=== PATIENT | male | born 1950 | race African-American/Black ===

== ENCOUNTER 2023-03-25 09:10 | Inpatient (IN) | payer OTHER, SELFPAY ==
--- NOTE | 2023-03-25 | ECG_ITS ---
Test Reason : weakness Blood Pressure : / mmHG Vent. Rate : 083 BPM Atrial Rate : 083 BPM P-R Int : 206 ms QRS Dur : 084 ms QT Int : 364 ms P-R-T Axes : 076 -25 058 degrees QTc Int : 427 ms Normal sinus rhythm Minimal voltage criteria for LVH, may be normal variant ( Roger product ) Septal infarct , age undetermined Abnormal ECG No previous ECGs available Referred By: Generic ED Physician Electronically Signed By:ANNELISE MALHOTRA MD
--- NOTE | ~2023-03-25 | XR_ITS ---
EXAMINATION: XR CHEST CLINICAL INFORMATION: Chest pain. COMPARISON: None available. TECHNIQUE: 2 views of the chest were obtained. FINDINGS: The lungs are well expanded. There is contour abnormality in the right hilar region with lobulated masslike density measuring 5 cm. No pleural effusion. Cardiac silhouette is within normal limits. XR/XR chest 2V IMPRESSION: Masslike right hilar density measuring at least 5 cm. Contrast-enhanced chest CT is recommended for further characterization.
--- NOTE | ~2023-03-25 | CT_ITS ---
EXAMINATION: CT CHEST WITH CONTRAST CLINICAL INFORMATION: Abnormal x-ray. Concern for lung cancer. COMPARISON: Radiograph from today TECHNIQUE: Multidetector volumetric CT imaging of the chest was obtained after the administration of 65 mL of Omnipaque 350 intravenous contrast without immediate adverse reactions. Axial MIP volume rendering provided. Sagittal and coronal reformatted images were obtained. This CT examination was performed using dose optimization techniques as appropriate, variously including the following: *Automated exposure control *Adjustment of mA and/or kV according to patient size (this includes techniques or standardized protocols for targeted exams where dose is matched to indication/reason for exam; i.e. extremities or head) *Use of iterative reconstruction technique DLP: 221 mGy-cm FINDINGS: SIDE PULLER: Fullness in the region of the right hilum again noted as seen on radiograph. LUNGS: The central airways are patent. There is moderate to severe centrilobular and paraseptal emphysema. Paraseptal emphysema is predominant. There is a central right lung mass impossible from the hilar structures. This measures approximately 7.2 x 5.2 cm on series 5 image 249. There is encasement of the right sided bronchi. This crosses the fissure lines. There is a superior extension in the right upper lobe with this component measuring 3.9 x 3.8 cm on series 5 image 210 . There is also a nodular extension inferiorly in the right lower lobe measuring 2.7 x 1.7 cm on series 5 image 347. There are no left lung nodules seen. No pneumothorax or pleural effusion. MEDIASTINUM: Normal heart size. No pericardial effusion. Confluent mass of the right hilum. Associated mediastinal lymphadenopathy. For instance there is a subcarinal node measuring 1.8 cm . Precarinal node measures 1.3 cm. Pretracheal node more superiorly measures 1.4 cm. AXILLA: No lymphadenopathy. UPPER ABDOMEN: Normal adrenal glands. Mild heterogeneity of the spleen is nonspecific and may be associated with contrast bolus timing. OSSEOUS STRUCTURES: Degenerative changes throughout the spine. A few lucent areas are seen within the vertebral bodies, nonspecific. For instance in the T6 vertebral body there is a 1.2 cm lucency. Additional lucent area at the superior endplate of L2. In the absence of other evidence of metastatic disease, these findings are likely incidental. CT/CT chest w IV con IMPRESSION: 1. Central right lung mass impossible to separate from the hilar structures. This is highly suspicious for malignancy. There is associated mediastinal lymphadenopathy. 2. Moderate to severe emphysema. Fleischner guidelines were followed.
[2023-03-25 10:00] VITALS: BP 101/64; PULSE 90; RESP 18; TEMP 37; O2SAT 98; BMI 19.1
--- NOTE | 2023-03-25 10:36 | ED_ITS ---
HPI - Weakness General Chief complaint: Weakness Stated complaint: weak not eating couple months Time Seen by Provider: 03/25/23 10:35 Source: patient Mode of arrival: ambulatory Limitations: no limitations History of Present Illness HPI Narrative: 72-year-old male with no known past medical history, former smoker presents to the emergency department for progressing generalized weakness and fatigue. He reports that he has been unable to eat or drink for about 6 months due to feeling nauseous most of the time. Due to this, patient has lost 60 lbs. He reports that he has been sleep deprived for months. He also endorses constant, non-radiating chest pain, which he rates as 6/10. He has a 50 year history of sm oking half a pack of cigarette a day. Last cigarette use was 6 months ago. He denies SOB, cough, GI bleeding, muscle pain, or abdominal pain. He reports no other acute concerns at this time. MD Complaint: generalized weakness Onset (ago): month(s) Duration: progressively worsening Location: generalized Migration: none Severity: severe Quality: aching Relieving factors: rest Exacerbating factors: exertion Associated symptoms: chest pain, loss of appetite, nausea/vomiting and other (weight loss) Related Data Home Medications Medication Instructions Recorded Confirmed acetaminophen 325 mg tablet 650 mg PO Q6H PRN Pain 03/25/23 03/25/23 (Tylenol) Allergies Allergy/AdvReac Type Severity Reaction Status Date / Time No Known Allergies Allergy Verified 03/25/23 10:00 Review of Systems Review of Systems: Yes all other systems are reviewed and are negative [facility] Social History Social History Smoked in Last 30 Days: No Use of substances other than those prescribed or required for medical reasons: Yes Substance Use Type: Marijuana Advance Directives: No Advance Directives Information Provided: Yes Physical Exam Vital Signs: Vital Signs: Last Vital Signs Temp 97.7 F 03/25/23 14:36 Pulse 68 03/25/23 14:36 Resp 15 03/25/23 14:36 BP 99/62 03/25/23 14:36 Pulse Ox 97 03/25/23 14:36 O2 Del Method Room Air 03/25/23 14:36 BMI result Body Mass Index 19.1 Appearance: Alert. Oriented X3. Cachectic male Head: normocephalic, atraumatic. Eyes: Pupils equal, round and reactive to light. ENT: Pharynx normal. No tonsillar swelling or exudate. Neck: Normal inspection. Neck supple. No appreciated supraclavicular adenopathy CVS: Normal heart rate and rhythm. Pulses normal. Respiratory: No respiratory distress. Breath sounds normal. Abdomen: Soft and nontender. +BS x4 Skin: Skin warm and dry. Normal skin color. Normal skin turgor. No rashes. Extremities: No lower extremity edema. No joint swelling. Neuro/psych: Oriented X 3. No motor deficit. No sensory deficit. CN II-XII intact. Normal speech and cognition. Course Consultations Consultation #1: Dr. Ruvalcaba and Medications Administered Discontinued Medications Generic Name Dose Route Start Last Admin Trade Name Freq PRN Reason Stop Dose Admin Sodium Chloride 1,000 mls @ 999 mls/hr 03/25/23 11:15 03/25/23 15:21 Ns IVCONT 03/25/23 12:15 Infused .Q1H1M NOAH Infusion Sodium Chloride 1,000 mls @ 999 mls/hr 03/25/23 14:15 03/25/23 15:25 Ns IV 03/25/23 15:15 999 mls/hr .Q1H1M NOAH Administration Iohexol 100 ml 03/25/23 12:44 03/25/23 12:44 Iohexol 350 Mg/Ml 100 Ml Infus..Btl IV 03/25/23 12:45 65 ml ONCE ONE Administration Iohexol 100 ml 03/25/23 13:01 03/25/23 13:16 Iohexol 350 Mg/Ml 100 Ml Infus..Btl IV 03/25/23 13:02 Not Given ONCE ONE Ondansetron HCl 4 mg 03/25/23 14:52 03/25/23 15:25 Ondansetron Hcl 4 Mg/2 Ml Vial IVPUSH 03/25/23 14:53 4 mg ONCE ONE Administration Medical Decision Making Medical Decision Making [facility] Narrative: 72-year-old former smoker presents to the ER for evaluation of failure to thrive with decreased p.o. intake, significant weight loss, nausea, generalized weakness for the last several months. His lab workup today showed a calcium of 12.7. He was found to have an albumin of 2.8, therefore his corrected calcium was 13.7. Given his physical exam and clinical decline there is concern for underlying malignancy. His chest x-ray showed a large right-sided perihilar mass with CT scan was done to better differentiate. CT scan confirmed a large 7 x 5 cm mass in the right perihilar area along with lucencies in the spine, most likely metastatic disease. Results were discussed with the patient and his family at the bedside. Given his symptomatic hypercalcemia, IV fluids were started and admission was planned. Oncologist Dr. Porter and Dr. Ruvalcaba were made aware. Patient was admitted to the hospital for further management and monitoring. Differential Diagnosis Differential Diagnoses: The differential diagnosis associated with the presentation includes Failure to thrive, new cancer Hypercalcemia likely due to metastatic cancer, possibly hyperparathyroidism, dehydration Admission/Observation Consideration of admission/observation: Escalation of care including admission/observation considered Symptomatic hypercalcemia requiring IV fluids, admission and monitoring. Consult Healthcare Provider Management of the patient was discussed with: Hospitalist and Warrant Clerk Lab Data MDM Lab Attestation statement: I reviewed the patient's lab results. hypercalcemia 03/25/23 10:32 03/25/23 10:32 Labs: Lab Results 03/25/23 03/25/23 03/25/23 Range/Units 10:32 10:32 10:32 WBC 9.1 (4.8-10.8) X10*3/uL RBC 4.21 L (4.60-5.80) X10*6/uL Hgb 12.2 L (14.0-18.0) g/dl Hct 38.9 L (42.0-52.0) % MCV 92.4 (80.0-98.0) fL MCH 29.0 (27.0-33.0) pg MCHC 31.4 (31.0-36.0) g/dl RDW 14.0 (11.0-16.0) % Plt Count 238 (160-400) X10*3/uL MPV 9.3 L (9.4-12.4) fL Immature Gran % (Auto) 0.6 H (0.0-0.4) % Neut % (Auto) 77.2 H (45-73) % Lymph % (Auto) 11.0 L (20-40) % [place] % (Auto) 10.8 (2-11) % Eos % (Auto) 0.1 (0-4) % Baso % (Auto) 0.3 (0-2) % Lymph # (Auto) 1.0 L (1.2-4.9) X10*3/uL [place] # (Auto) 1.0 (0.1-1.2) X10*3/uL Eos # (Auto) 0.0 (0.0-0.4) X10*3/uL Baso # (Auto) 0.0 (0.0-0.2) X10*3/uL Abs Immat Gran (auto) 0.05 H (0.00-0.03) X10*3/uL Absolute Neuts (auto) 7.0 (2.0-8.3) x10*3/uL Absolute Nucleated RBC 0.000 (0.0-0.012) X10*3/uL Nucleated RBC % (auto) 0.0 (0.0-0.2) /100WBC Sodium 133 L (135-145) mmol/L Potassium 4.2 (3.3-5.1) mmol/L Chloride 99 (96-108) mmol/L Carbon Dioxide 24 (22-29) mmol/L Anion Gap 14 (12-20) BUN 16 (9-16) mg/dL Creatinine 0.74 (0.5-1.4) mg/dL Estim Creat Clear Calc 80.2 Estimated GFR > 60 Random Glucose 90 (60-115) mg/dL Calcium 12.7 H* (8.4-10.2) mg/dL Phosphorus 2.7 (2.7-4.5) mg/dL Total Bilirubin 0.7 (0.0-1.0) mg/dL Direct Bilirubin 0.3 (0.0-0.5) mg/dL AST 38 H (5-37) U/L ALT 19 (0-40) U/L Alkaline Phosphatase 61 (39-117) U/L Troponin I High Sens 4.7 (<3.5-35.0) ng/L Total Protein 10.1 H (6.5-8.0) g/dL Albumin 2.8 L (3.5-5.0) g/dL Independent Interpretation I performed an independent interpretation of an: EKG, Plain X-Ray and CT Scan Interpretation: cxr with large right sided perihilar mass ekg with nrs, hr 83 bpm, normal QT and QTc CT chest with large perihilar lung mass on the right, emphysema changes w/ blebs Radiology Impression Discussion of test interpretation with radiology: I have reviewed the radiologist's reading. Radiologist Impression: EXAMINATION: CT CHEST WITH CONTRAST CLINICAL INFORMATION: Abnormal x-ray. Concern for lung cancer.? COMPARISON: Radiograph from today TECHNIQUE: Multidetector volumetric CT imaging of the chest was obtained after the administration of 65 mL of Omnipaque 350 intravenous contrast without immediate adverse reactions. Axial MIP volume rendering provided. Sagittal and coronal reformatted images were obtained. This CT examination was performed using dose optimization techniques as appropriate, variously including the following: *Automated exposure control *Adjustment of mA and/or kV according to patient size (this includes techniques or standardized protocols for targeted exams where dose is matched to indication/reason for exam; i.e. extremities or head) *Use of iterative reconstruction technique DLP: 221 mGy-cm FINDINGS: ROASTERMAN: Fullness in the region of the right hilum again noted as seen on radiograph. LUNGS: The central airways are patent. There is moderate to severe centrilobular and paraseptal emphysema. Paraseptal emphysema is predominant. There is a central right lung mass impossible from the hilar structures. This measures approximately 7.2 x 5.2 cm on series 5 image 249. There is encasement of the right sided bronchi. This crosses the fissure lines. There is a superior extension in the right upper lobe with this component measuring 3.9 x 3.8 cm on series 5 image 210 . There is also a nodular extension inferiorly in the right lower lobe measuring 2.7 x 1.7 cm on series 5 image 347. There are no left lung nodules seen. No pneumothorax or pleural effusion.? MEDIASTINUM: Normal heart size. No pericardial effusion. Confluent mass of the right hilum. Associated mediastinal lymphadenopathy. For instance there is a subcarinal node measuring 1.8 cm . Precarinal node measures 1.3 cm. Pretracheal node more superiorly measures 1.4 cm.? AXILLA: No lymphadenopathy.? UPPER ABDOMEN: Normal adrenal glands. Mild heterogeneity of the spleen is nonspecific and may be associated with contrast bolus timing.? OSSEOUS STRUCTURES: Degenerative changes throughout the spine. A few lucent areas are seen within the vertebral bodies, nonspecific. For instance in the T6 vertebral body there is a 1.2 cm lucency. Additional lucent area at the superior endplate of L2. In the absence of other evidence of metastatic disease, these findings are likely incidental.? CT/CT chest w IV con IMPRESSION: 1.? Central right lung mass impossible to separate from the hilar structures. This is highly suspicious for malignancy. There is associated mediastinal lymphadenopathy. 2.? Moderate to severe emphysema. ? Independent Historian Clinical information obtained from an independent historian. History obtained from or confirmed by: Other (sisters at the bedside) Prescription Management calcitonin, bisphosphanates Chronic Conditions Patient?s care impacted by: Other (former) Critical Care Time Critical Care Time Critical Care Time: Yes Total Critical Care Time: 38 Attestation: I have personally provided critical care time exclusive of time spent on separately billable procedures. Time includes review of lab data, radiology results, discussion with consultants, and monitoring for potential decompensation. Intervention performed as documented. Discharge Plan Discharge Clinical Impression: Mass of right lung, Hypercalcemia, Adult failure to thrive Patient Disposition: Admitted As Inpatient
[2023-03-25 10:39] LABS: Basophils Percent Auto 0.3 % (0-2); Eosinophils Percent Auto 0.1 % (0-4); Hematocrit 38.9 % (42.0-52.0); Hemoglobin 12.2 g/dl (14.0-18.0); Imm Gran Abs Auto 0.05 X10*3/uL (0.00-0.03); Imm Gran Pct Auto 0.6 % (0.0-0.4); MANUAL DIFF FLAG NO; Mean Corpuscular HGB Conc 31.4 g/dl (31.0-36.0); Mean Corpuscular Volume 92.4 fL (80.0-98.0); Mean Platelet Volume 9.3 fL (9.4-12.4); Monocytes Percent Auto 10.8 % (2-11); Neutrophils Percent Auto 77.2 % (45-73); Platelet Count 238 X10*3/uL (160-400); Red Blood Count 4.21 X10*6/uL (4.60-5.80); White Blood Count 9.1 X10*3/uL (4.8-10.8)
[2023-03-25 11:04] LABS: Anion Gap 14 (12-20); Blood Urea Nitrogen 16 mg/dL (9-16); Calcium 12.7 mg/dL (8.4-10.2); Carbon Dioxide 24 mmol/L (22-29); Chloride 99 mmol/L (96-108); Creatinine Clr Calc Pharmacy 80.2; Estimated Glomerular Filt Rate > 60; Glucose Random 90 mg/dL (60-115); Potassium 4.2 mmol/L (3.3-5.1); Sodium 133 mmol/L (135-145)
[2023-03-25 11:09] LABS: Troponin-I High Sensitivity 4.7 ng/L (<3.5-35.0)
[2023-03-25 11:49] LABS: Phosphorus 2.7 mg/dL (2.7-4.5)
[2023-03-25] MEDS: 0.9 % Sodium Chloride 1,000 ML 999 ML IVCONT (12:12)
[2023-03-25 12:14] VITALS: BP 98/67; PULSE 72; RESP 18; TEMP 36.5; O2SAT 97
[2023-03-25] MEDS: iohexoL 350 MG/ML 100 ML INFUS..BTL IV (12:44)
[2023-03-25 14:36] VITALS: BP 99/62; PULSE 68; RESP 15; TEMP 36.5; O2SAT 97
--- NOTE | 2023-03-25 15:00 | PHA.MEDREC ---
Pharmacy Consult ? Medication Reconciliation Pharmacy has completed the medication reconciliation.
[2023-03-25 15:14] LABS: Alanine Aminotransferase 19 U/L (0-40); Albumin Level 2.8 g/dL (3.5-5.0); Alkaline Phosphatase 61 U/L (39-117); Aspartate Amino Transferase 38 U/L (5-37); Bilirubin Direct 0.3 mg/dL (0.0-0.5); Bilirubin Total 0.7 mg/dL (0.0-1.0); Total Protein 10.1 g/dL (6.5-8.0)
[2023-03-25] MEDS: ondansetron HCL 4 MG/2 ML VIAL IVPUSH (15:25)
[2023-03-25] MEDS: 0.9 % Sodium Chloride 1,000 ML 999 ML IV (15:25)
--- NOTE | 2023-03-25 16:28 | P.HPHOSP_ITS ---
History of Present Illness Date of Service: 03/25/23 Attending physician on admission: Kojo Corrigan Chief Complaint: lung mass /hypercalcemia 72-year-old male no known past medical history, former smoker?(says smoker for 50yrs) came to the emergency room for 3-6 month history of progressive generalized weakness and fatigue, weight loss. He said that from last 6 months he is getting progressively weak, appetite decreasing, is losing weight-from last 2 week it was difficult for him to move around so he went to the hospital([facility] in [place])-where he was told that he probably will need biopsy(but he said he could not get biopsy due to insurance issues): Subsequently went home and was getting more fatigue and week so decided to come to the hospital. In addition patient says he has cough almost 3 month duration as well as chest tightness whenever he coughs. Also has nausea almost 3 months duration Denies any hemoptysis, or shortness of breath or fever or chills or vomiting or any muscle twitching or palpitations or headaches or lightheadedness or blurred vision. On exam denies chest pain. Lab imaging reviewed: H&H 12.2 Sodium 133, adjusted calcium for albumin is around 13.7 Total protein is 10.1, albumin is 2.8 Troponin x1 negative, EKG: nsr ,no significant st changes. PTH pending Chest CT shows:: 1.? Central right lung mass impossible to separate from the hilar structures. This is highly suspicious for malignancy. There is associated mediastinal lymphadenopathy. 2.? Moderate to severe emphysema. Review of Systems Review of Systems: As above. [facility] Pertinent family history: Denies any family history of any cancer Social History (Updated 03/25/23 @ 16:36 by Kojo Corrigan MD) Alcohol intake: never Patient Tobacco Use Status: Former Tobacco user Substance Use Type: Marijuana Meds Allergies Allergy/AdvReac Type Severity Reaction Status Date / Time No Known Allergies Allergy Verified 03/25/23 10:00 Active Medications: Current Medications Pamidronate Disodium 60 mg/ (Sodium Chloride) 260 mls @ 130 mls/hr IV ONCE ONE Stop: 03/25/23 18:59 Sodium Chloride (Ns) 1,000 mls @ 125 mls/hr IVCONT .Q8H [facility] Pharmacy Consult (Consult Rx Perform Med Rec) 1 each MISCELLANE ONCE PRN PRN Reason: Consult order Sodium Chloride (0.9 % Sodium Chloride Flush 3 Ml Syringe) 3 ml IVFLUSH QSHIFT [facility] Home Medications Medication Instructions Recorded Confirmed Last Taken Type acetaminophen 325 mg tablet 650 mg PO Q6H PRN Pain 03/25/23 03/25/23 2 Days Ago History (Tylenol) ~03/23/23 Physical Exam Vital Signs and Narrative: Vital Signs: Last Vital Signs Temp 97.7 F 03/25/23 14:36 Pulse 68 03/25/23 14:36 Resp 15 03/25/23 14:36 BP 99/62 03/25/23 14:36 Pulse Ox 97 03/25/23 14:36 O2 Del Method Room Air 03/25/23 14:36 BMI result Body Mass Index 19.1 Appearance: Alert.? Oriented X3.? not in distress.thin build, ch sick looking,?seems sad. Eyes: Pupils equal, round and reactive to light.? Sclera nonicteric.? ENT: Pharynx normal.? Moist mucous membranes. cvs: rrr, [id number] . res: air entry fair ,few sacttered wheezing abd: no rebound or guarding ,nt, bs present. ext pulses present , no cyanosis . neuro: axo3 , nonfocal. Results Labs 03/25/23 10:32 03/25/23 10:32 Labs: Laboratory Results - last 24 hr 03/25/23 03/25/23 03/25/23 10:32 10:32 10:32 MCV 92.4 MCH 29.0 MCHC 31.4 RDW 14.0 Plt Count 238 MPV 9.3 L Immature Gran % (Auto) 0.6 H Neut % (Auto) 77.2 H Lymph % (Auto) 11.0 L [place] % (Auto) 10.8 Eos % (Auto) 0.1 Baso % (Auto) 0.3 Lymph # (Auto) 1.0 L [place] # (Auto) 1.0 Eos # (Auto) 0.0 Baso # (Auto) 0.0 Abs Immat Gran (auto) 0.05 H Absolute Neuts (auto) 7.0 Absolute Nucleated RBC 0.000 Nucleated RBC % (auto) 0.0 Anion Gap 14 Estim Creat Clear Calc 80.2 Estimated GFR > 60 Random Glucose 90 Calcium 12.7 H* Phosphorus 2.7 Total Bilirubin 0.7 Direct Bilirubin 0.3 AST 38 H ALT 19 Alkaline Phosphatase 61 Troponin I High Sens 4.7 Total Protein 10.1 H Albumin 2.8 L ECG Attestation: I personally reviewed and interpreted this ECG as follows: (nsr ,no significant st changes.) Imaging Radiologist's Impressions: Impressions Chest X-Ray 03/25/23 11:05 IMPRESSION: Masslike right hilar density measuring at least 5 cm. Contrast-enhanced chest CT is recommended for further characterization. Chest CT 03/25/23 13:00 IMPRESSION: 1. Central right lung mass impossible to separate from the hilar structures. This is highly suspicious for malignancy. There is associated mediastinal lymphadenopathy. 2. Moderate to severe emphysema. Fleischner guidelines were followed. Assessment and Plan (1) Mass of right lung: Status: Acute (2) Hypercalcemia: Status: Acute (3) Malnutrition: Status: Acute Plan 72-year-old male no known past medical history, former smoker?(says smoker for 50yrs) came to the emergency room for 3-6 month history of progressive generalized weakness and fatigue, weight loss: Found to have possible lung mass and hypercalcemia. 1. Hypercalcemia (? Possible malignancy) Adjusted calcium is around 13.7 Patient received 2 L of IV fluid in the ED, also Lasix PTH pending Repeat BMP pending, also added pamidronate Monitor BMP closely q.6 hours Added hematology evaluation. 2. Hyponatremia: Multifactorial poor oral intake, malignancy Continue IV fluid Monitor BMP Nephro evaluation since multiple electrolytic abnormalities including hyponatremia and hypercalcemia. 3. Malnutrition:? Multifactorial malignancy, poor oral intake. Weight loss around 60 lb in last 6 months. Added nutrition evaluation, Ensure 4. Possible lung malignancy: Seems like have central lesion, will consult Pulmonary for needed biopsy. DVT prophylaxis: SubQ heparin Patient will benefit from inpatient level of care since patient has multiple electrolytic abnormalities including severe hypercalcemia for which patient will need workup IV fluid and IV pamidronate, and possible workup for hypercalcemia and hyponatremia, possible lung malignancy -may need bronchoscopy and biopsy. Time Spent With Patient Time: Total time managing care of this patient today ____ minutes. Quality Stroke Does the patient have a stroke diagnosis?: No VTE Prior VTE?: No VTE Risk Level:: Medical - moderate - high VTE Device Contraindication: N/A - Device Ordered VTE Drug Contraindication: N/A - Med Ordered
[2023-03-25] MEDS: Furosemide 20 MG TABLET PO (17:09)
[2023-03-25] MEDS: Heparin Sodium,Porcine 5,000 UNIT/ML VIAL 5000 UNIT SUBCUT (17:10)
[2023-03-25 17:13] VITALS: BP 96/59; PULSE 69; RESP 14; O2SAT 97
[2023-03-25 17:14] LABS: Anion Gap 13 (12-20); Blood Urea Nitrogen 16 mg/dL (9-16); Calcium 11.3 mg/dL (8.4-10.2); Carbon Dioxide 20 mmol/L (22-29); Chloride 105 mmol/L (96-108); Creatinine Clr Calc Pharmacy 91.3; Estimated Glomerular Filt Rate > 60; Glucose Random 86 mg/dL (60-115); Potassium 4.1 mmol/L (3.3-5.1); Sodium 134 mmol/L (135-145)
[2023-03-25] MEDS: 0.9 % Sodium Chloride 1,000 ML 125 ML IVCONT (17:18)
[2023-03-25] MEDS: Omeprazole 20 MG CAPSULE.DR PO (17:32)
[2023-03-25 17:39] LABS: Lactate Dehydrogenase 217 U/L (118-273)
[2023-03-25 18:09] VITALS: BP 105/61; PULSE 66; RESP 18; TEMP 37.1; O2SAT 96
[2023-03-25] MEDS: Pamidronate Disodium 60 MG in 0.9 % Sodium Chloride 250 ML 130 MG IV (18:37)
[2023-03-25 19:25] VITALS: BP 119/75; PULSE 70; RESP 16; TEMP 36; O2SAT 96
[2023-03-26] VITALS (8 sets, daily range): BP systolic 100–110; BP diastolic 57–65; PULSE 62–86; RESP 16–20; TEMP 36.6–38.7; O2SAT 94–99
[2023-03-26 00:23] LABS: Anion Gap 12 (12-20); Blood Urea Nitrogen 15 mg/dL (9-16); Calcium 11.3 mg/dL (8.4-10.2); Carbon Dioxide 23 mmol/L (22-29); Chloride 104 mmol/L (96-108); Estimated Glomerular Filt Rate > 60; Glucose Random 83 mg/dL (60-115); Potassium 3.6 mmol/L (3.3-5.1); Sodium 135 mmol/L (135-145)
[2023-03-26] MEDS: 0.9 % Sodium Chloride 1,000 ML 125 ML IVCONT ×3 (02:46→17:22)
[2023-03-26] MEDS: Omeprazole 20 MG CAPSULE.DR PO (05:23)
[2023-03-26] MEDS: Heparin Sodium,Porcine 5,000 UNIT/ML VIAL 5000 UNIT SUBCUT ×2 (05:23→17:32)
[2023-03-26 06:52] LABS: Anion Gap 10 (12-20); Blood Urea Nitrogen 13 mg/dL (9-16); Carbon Dioxide 24 mmol/L (22-29); Chloride 105 mmol/L (96-108); Creatinine Clr Calc Pharmacy 91.3; Estimated Glomerular Filt Rate > 60; Glucose Random 76 mg/dL (60-115); Potassium 3.7 mmol/L (3.3-5.1); Sodium 135 mmol/L (135-145)
--- NOTE | 2023-03-26 07:52 | P.CNHO_ITS ---
Subjective - Subjective Chief complaint: Weakness and weight loss Patient: new to practice Consult date: 03/26/23 Requesting Physician: Dr. Corrigan Primary Care Provider: Sreekanth Reyes PA-C HPI - Consult Narrative Reason for consult: Probable lung cancer Narrative: Gualberto Banks is a 72 year old male, chronic smoker who presented to emergency department for progressive weakness and weight loss. He says for the last 6 months he has had loss of appetite, weakness and weight loss, reports 50 lb weight loss. He has a chronic cough but denies hemoptysis or worsening shortness of breath. He has not seen his PCP in over a year. He says he has had progressive weakness to the point that he is not able to walk. He reports no nausea or emesis. No abdominal pain or diarrhea. He has not been started on any new medications. He is not a diabetic. No change in vision or difficulty swallowing. No urinary symptoms. Workup in the emergency department revealed hypoalbuminemia and hypercalcemia. CT chest showed right lung mass suspicious for malignancy and associated mediastinal lymphadenopathy. Patient denies any chronic medical problems such as coronary artery disease, hypertension, CVA or COPD although he does have COPD on imaging. Review of Systems - Constitutional Reports as per HPI, Denies anorexia, Denies lack of energy, Denies malaise - Cardiovascular Reports no additional cardiovascular complaints - Respiratory Reports no additional respiratory complaints - Gastrointestinal Reports no additional gastrointestinal complaints Oncology Screenings - ECOG Performance Status ECOG Performance Status: [facility] Social History: Social History (Last Updated 03/25/23 @ 16:36 by Kojo Corrigan MD) Living Situation History: Household Members: Other Household Members Other:: Lives with brother Housing: House Do you presently have visiting nurse or other home services: No Tobacco History: Patient Tobacco Use Status: Former Tobacco user Tobacco use type: Cigarette Cigarette Packs Per Day: 0.5 Cigarettes Per Day: 10 Years Smoked: 50 Smoke Quit Date: 6 months ago Substance Use History: Substance Use Type: Marijuana Home Medications and Allergies Current Medications: Current Medications Albuterol/Ipratropium (Albuterol/Iprat 2.5/0.5mg 3 Ml Ampul.Neb) 3 ml INHALE RQ4H WHILE AWAKE [facility] Last Admin: 03/25/23 19:59 Dose: Not Given Heparin Sodium (Porcine) (Heparin Sodium,Porcine 5,000 Unit/Ml Vial) 5,000 unit SUBCUT Q12H COUNTS INCLUDE 234 BEDS AT THE [facility] Last Admin: 03/26/23 05:23 Dose: 5,000 unit Sodium Chloride (Ns) 1,000 mls @ 125 mls/hr IVCONT .Q8H COUNTS INCLUDE 234 BEDS AT THE [facility] Last Admin: 03/26/23 02:46 Dose: 125 mls/hr Omeprazole (Omeprazole 20 Mg Capsule.Dr) 20 mg PO DAILY@0630 COUNTS INCLUDE 234 BEDS AT THE [facility] Last Admin: 03/26/23 05:23 Dose: 20 mg Ondansetron HCl (Ondansetron Hcl 4 Mg/2 Ml Vial) 4 mg IVPUSH Q4H PRN PRN Reason: Nausea Pharmacy Consult (Consult Rx Perform Med Rec) 1 each MISCELLANE ONCE PRN PRN Reason: Consult order Sodium Chloride (0.9 % Sodium Chloride Flush 3 Ml Syringe) 3 ml IVFLUSH QSHIFT COUNTS INCLUDE 234 BEDS AT THE [facility] Last Admin: 03/26/23 00:14 Dose: Not Given Home Medications Medication Instructions Recorded Confirmed Type acetaminophen 325 mg tablet 650 mg PO Q6H PRN Pain 03/25/23 03/25/23 History (Tylenol) Allergies Allergy/AdvReac Type Severity Reaction Status Date / Time No Known Allergies Allergy Verified 03/25/23 10:00 Physical Exam Vital signs: Vital Signs Temp 98.2 F 03/26/23 07:14 Pulse 62 03/26/23 07:14 Resp 18 03/26/23 07:14 BP 100/60 03/26/23 07:14 Pulse Ox 99 03/26/23 07:14 O2 Del Method Room Air 03/26/23 07:14 Intake & Output 03/25/23 03/26/23 03/26/23 18:59 06:59 18:59 Intake Total 1999 / 3360 1360 / 3360 Output Total 900 / 900 Balance 1999 460 / 2460 Urine Output (Average ml/kg/hr) 1.18 Intake: Intake, Oral Amount 100 / 100 Intake, IV Amount 1999 / 3260 1260 / 3260 0.9 % Sodium Chloride 1,000 ml 1000 / 1000 @ 999 mls/hr IV .Q1H1M COUNTS INCLUDE 234 BEDS AT THE [facility] Rx#: [id number] Pamidronate Disodium 60 mg In 0 260 / 260 .9 % Sodium Chloride 250 ml @ 130 mls/hr IV ONCE ONE Rx#: [id number] 0.9 % Sodium Chloride 1,000 ml 1000 / 2000 1000 / 2000 @ 125 mls/hr IVCONT .Q8H COUNTS INCLUDE 234 BEDS AT THE [facility] Rx #:[id number] Output: Output, Urine Amount 900 / 900 Other: Urine Urinal Urine Color Yellow Last Bowel Movement 03/22/23 Weight 63.8 kg Weight 63.8 kg - Constitutional Present: no acute distress, thin, cooperative - Routine HEENT Exam Head: Present: normal inspection Eye: Present: EOMI, normal appearance - Routine Neck Exam Present: supple. Absent: lymphadenopathy - Routine Respiratory Exam Absent: accessory muscle use, rhonchi, stridor, wheezes - Routine Cardiovascular Exam Cardiovascular: Present: RRR, S1, S2 - Routine Abdominal Exam Present: normal bowel sounds - Routine Extremities Exam Absent: calf tenderness - Routine Skin Exam Present: intact - Routine Neurological Exam Present: alert, oriented X3 Hem/Onc Consult Result - Labs CBC & Chem 7: 03/25/23 10:32 03/26/23 06:00 Labs: Short CBC 03/25/23 Range/Units 10:32 WBC 9.1 (4.8-10.8) X10*3/uL Hgb 12.2 L (14.0-18.0) g/dl Hct 38.9 L (42.0-52.0) % Plt Count 238 (160-400) X10*3/uL BMP 03/25/23 03/25/23 03/25/23 10:32 16:50 23:27 Sodium 133 L 134 L 135 Potassium 4.2 4.1 3.6 Chloride 99 105 104 Carbon Dioxide 24 20 L 23 BUN 16 16 15 Creatinine 0.74 0.65 0.69 Calcium 12.7 H* 11.3 H D 11.3 H 03/26/23 06:00 Sodium 135 Potassium 3.7 Chloride 105 Carbon Dioxide 24 BUN 13 Creatinine 0.65 Calcium 11.0 H Liver Function 03/25/23 Range/Units 10:32 Total Bilirubin 0.7 (0.0-1.0) mg/dL Direct Bilirubin 0.3 (0.0-0.5) mg/dL AST 38 H (5-37) U/L ALT 19 (0-40) U/L Alkaline Phosphatase 61 (39-117) U/L Albumin 2.8 L (3.5-5.0) g/dL Assessment and Plan Patient Active problem list reviewed?: Yes (1) Mass of right lung Status: Acute Assessment and plan: 1. This is a 72-year-old male with probable lung cancer. He is presenting with extreme weakness and significant weight loss, CT chest with contrast performed 03/25/2023 shows central right lung mass inseparable from hilar structures m easuring 7.2 x 5.2 cm. There is encasement of right-sided rhonchi, there is superior extension in the right upper lobe this company and measuring 3.9 x 3.8 cm. Nodule extension inferiorly to the right lower lobe measuring 2.7 x 1.7 cm. No left lung nodules in a pneumothorax or pleural effusion. Subcarinal lymph node measuring 1.8 cm, precarinal lymph node measuring 1.3 and pretracheal lymph node measuring 1.4 cm. Few lucent areas within vertebral bodies which are reported as nonspecific. LDH and CEA levels are normal. He has mild hypercalcemia which could be paraneoplastic syndrome or secondary to bone metastasis. He will need additional imaging with bone scan or PET-CT and brain MRI. child support specialist consultation for bronchoscopy and biopsy. I will follow with you. I thank you for this consultation. - Time Spent With Patient Time Spent with Patient (in minutes): 25
[2023-03-26] MEDS: Albuterol/Iprat 2.5/0.5MG 3 ML AMPUL.NEB INHALE ×2 (08:00→19:43)
[2023-03-26] MEDS: Albumin Human 25 % 100 ML IV (08:54)
--- NOTE | 2023-03-26 09:42 | PM.CNPUL ---
History of Present Illness History of Present Illness Consult date: 03/26/23 Requesting physician: Kojo Corrigan Reason for consult: cough and lung mass Chief complaint: Hypercalcemia of malignancy Narrative: PULMONARY CONSULTATION : I have seen this gentleman this morning, with a very sad story of cough for the last 3-4 months, , anorexia gradual weight loss and marked generalized weakness. He describes his cough mostly nonproductive, has had no wheezing spells. He is more concerned about ongoing weight loss and marked generalized weakness, to the point that it has become difficult for him to move around. He has had poor sleep for the last few months. HE DENIES FEVER CHEST PAIN OR CHILLS. Past medical history is essentially negative, as he has really not seen any primary care physician. HE DOES HAVE HISTORY OF SMOKING THROUGHOUT HIS ADULT LIFE UP TO 1 PACK OF CIGARETTES A DAY. CHEST X-RAY AND CT SCAN OF THE CHEST ARE GROSSLY ABNORMAL, WITH CHEMISTRY EVIDENCE OF HYPERCALCEMIA . Review of Systems Review of Systems: Yes all other systems are reviewed and are negative [facility] Social History Social History Household Members: Other Household Members Other:: Lives with brother Housing: House Do you presently have visiting nurse or other home services: No Alcohol intake: never Patient Tobacco Use Status: Former Tobacco user Quit Date: 6 months ago Tobacco use type: Cigarette Cigarette Packs Per Day: 0.5 Years Smoked: 50 Substance Use Type: Marijuana Meds Allergies Allergy/AdvReac Type Severity Reaction Status Date / Time No Known Allergies Allergy Verified 03/25/23 10:00 Active Medications: Current Medications Albuterol/Ipratropium (Albuterol/Iprat 2.5/0.5mg 3 Ml Ampul.Neb) 3 ml INHALE RQ4H WHILE AWAKE [facility] Last Admin: 03/26/23 09:25 Dose: Not Given Heparin Sodium (Porcine) (Heparin Sodium,Porcine 5,000 Unit/Ml Vial) 5,000 unit SUBCUT Q12H [facility] Last Admin: 03/26/23 05:23 Dose: 5,000 unit Sodium Chloride (Ns) 1,000 mls @ 125 mls/hr IVCONT .Q8H [facility] Last Admin: 03/26/23 08:51 Dose: 125 mls/hr Albumin Human (Kedbumin 25 %) 100 mls @ 100 mls/hr IV Q6H [facility] Stop: 03/27/23 03:44 Last Admin: 03/26/23 08:54 Dose: 100 mls/hr Omeprazole (Omeprazole 20 Mg Capsule.Dr) 20 mg PO DAILY@0630 [facility] Last Admin: 03/26/23 05:23 Dose: 20 mg Ondansetron HCl (Ondansetron Hcl 4 Mg/2 Ml Vial) 4 mg IVPUSH Q4H PRN PRN Reason: Nausea Pharmacy Consult (Consult Rx Perform Med Rec) 1 each MISCELLANE ONCE PRN PRN Reason: Consult order Sodium Chloride (0.9 % Sodium Chloride Flush 3 Ml Syringe) 3 ml IVFLUSH QSHIFT [facility] Last Admin: 03/26/23 07:57 Dose: Not Given Home Medications Medication Instructions Recorded Confirmed Last Taken Type acetaminophen 325 mg tablet 650 mg PO Q6H PRN Pain 03/25/23 03/25/23 2 Days Ago History (Tylenol) ~03/23/23 Physical Exam Vital Signs: Vital Signs: Last Vital Signs Temp 98.2 F 03/26/23 07:14 Pulse 62 03/26/23 08:03 Resp 16 03/26/23 08:03 BP 100/60 03/26/23 07:14 Pulse Ox 99 03/26/23 07:14 O2 Del Method Room Air 03/26/23 07:14 BMI result Body Mass Index 19.1 THIS GENTLEMAN IS OF, A THIN BUILD THERE IS OBVIOUS MUSCLE WASTING ESPECIALLY IN THE TEMPORAL AREAS. Const: General: comfortable, no acute distress, alert and awake; No healthy appearing (Chronically sick-looking) Orientation/consciousness: patient oriented x3 HEENT: Head: Yes normal to inspection General nose exam: No nasal polyps present and No nasal discharge present Face and sinus: Yes sinuses nontender Mouth: oropharynx normal Throat: Yes posterior oropharynx normal Eyes: General: appearance normal, both eyes and all related structures Neck: Neck: Yes normal visual inspection, Yes no lymphadenopathy, Yes trachea midline and Yes no JVD Thyroid: Thyroid normal Chest: Chest palpation & inspection: normal inspection of the chest, normal palpation of entire chest wall and no tenderness Resp: Effort & Inspection: normal respiratory effort Auscultation: clear to auscultation bilaterally, no crackles, no rhonchi and no wheezes Cardio: Palpation: normal PMI Rate: regular rate Rhythm: regular rhythm Heart sounds: no gallops and no murmurs GI: Palpation (GI): Soft to palpation, nontender, No hepatosplenomegaly present and no masses Auscultation: normal bowel sounds Back/Spine/Pelvis: Thoracic/Lumbar Spine: thoracic and lumbar spine normal to inspection Skin: General skin exam: no rashes or lesions noted Neuro: General: patient oriented x3, no focal motor deficits and other (General muscle wasting is noted) Cranial nerves: Yes CN's II-XII intact bilaterally Extrem: General: Yes normal to inspection, Yes no clubbing, cyanosis or edema and Yes no calf tenderness Psych: Appearance: grossly normal and well kempt Speech and movement: Normal speech and movement present Results Laboratory Findings 03/25/23 10:32 03/26/23 06:00 Abnormal lab findings: Abnormal Labs 03/25/23 03/25/23 03/25/23 10:32 10:32 16:50 RBC 4.21 L Hgb 12.2 L Hct 38.9 L MPV 9.3 L Immature Gran % (Auto) 0.6 H Neut % (Auto) 77.2 H Lymph % (Auto) 11.0 L Lymph # (Auto) 1.0 L Abs Immat Gran (auto) 0.05 H Sodium 133 L 134 L Carbon Dioxide 20 L Anion Gap Calcium 12.7 H* 11.3 H D AST 38 H Total Protein 10.1 H Albumin 2.8 L 03/25/23 03/26/23 23:27 06:00 RBC Hgb Hct MPV Immature Gran % (Auto) Neut % (Auto) Lymph % (Auto) Lymph # (Auto) Abs Immat Gran (auto) Sodium Carbon Dioxide Anion Gap 10 L Calcium 11.3 H 11.0 H AST Total Protein HypercalcemiaAlbumin Hypercalcemia ,Ca 12.7 Diagnostic Findings Chest x-ray: pending and report reviewed CT scan - chest: pending and report reviewed Assessment and Plan (1) Mass of right lung: Status: Acute (2) Hypercalcemia: Status: Acute (3) Malnutrition: Status: Acute Plan History of lifelong smoking and now, cough, weight loss, and general weakness, with finding of a large central mass in the right lung, is typical of lung cancer. Presence of hypercalcemia, suggests that it may be small cell cancer. The mass is situated somewhat central, and may not be amenable to percutaneous needle biopsy. I think the next step is to do bronchoscopy with, bronchial low was and biopsy. This will have to be arranged after the weekend. In the meantime patient needs nutritional support and correction of hypercalcemia. Patient may be started on DuoNeb updrafts Q 6 hours p.r.n. for cough or any respiratory distress. In the meantime we can try to get sputum for cytology( induced ), for 3 days in a row. Time Spent With Patient Time: Total time managing care of this patient today ____ minutes. Procedures Date of Service Date of Service: 03/26/23
--- NOTE | 2023-03-26 11:49 | P.PNIM_ITS ---
Subjective Subjective Date of Service: 03/26/23 Interval History: lung mass /hypercalcemia Review of Systems says feeling somewhat improving ate some food today Has dry cough. no nausea vomiting or fever or chills or shortness of breath Physical Exam Vital Signs: Vital Signs: Last Vital Signs Temp 98.2 F 03/26/23 07:14 Pulse 62 03/26/23 08:03 Resp 16 03/26/23 08:03 BP 100/60 03/26/23 07:14 Pulse Ox 99 03/26/23 07:14 O2 Del Method Room Air 03/26/23 07:14 BMI result Body Mass Index 19.1 Appearance: Alert.? Oriented X3.? not in distress.thin build, ch sick looking,?seems sad. cvs: rrr, [id number] . res: air entry fair ,few sacttered wheezing abd: no rebound or guarding ,nt, bs present. ext pulses present , no cyanosis . neuro: axo3 , nonfocal. Objective Data Active Medications Albuterol/Ipratropium (Albuterol/Iprat 2.5/0.5mg 3 Ml Ampul.Neb) 3 ml INHALE RQ4H WHILE AWAKE [facility] Last Admin: 03/26/23 09:25 Dose: Not Given Documented By: LYNETTE Non-Admin Reason: Medication Discontinued Heparin Sodium (Porcine) (Heparin Sodium,Porcine 5,000 Unit/Ml Vial) 5,000 unit SUBCUT Q12H [facility] Last Admin: 03/26/23 05:23 Dose: 5,000 unit Documented By: YVONNE Sodium Chloride (Ns) 1,000 mls @ 125 mls/hr IVCONT .Q8H [facility] Last Admin: 03/26/23 08:51 Dose: 125 mls/hr Documented By: LYNETTE Albumin Human (Kedbumin 25 %) 100 mls @ 100 mls/hr IV Q6H [facility] Stop: 03/27/23 03:44 Last Admin: 03/26/23 10:01 Dose: Not Given Documented By: LYNETTE Non-Admin Reason: Medication Discontinued Omeprazole (Omeprazole 20 Mg Shelly.) 20 mg PO DAILY@0630 [facility] Last Admin: 03/26/23 05:23 Dose: 20 mg Documented By: YVONNE Ondansetron HCl (Ondansetron Hcl 4 Mg/2 Ml Vial) 4 mg IVPUSH Q4H PRN PRN Reason: Nausea Pharmacy Consult (Consult Rx Perform Med Rec) 1 each MISCELLANE ONCE PRN PRN Reason: Consult order Sodium Chloride (0.9 % Sodium Chloride Flush 3 Ml Syringe) 3 ml IVFLUSH QSHIFT [facility] Last Admin: 03/26/23 07:57 Dose: Not Given Documented By: LYNETTE Non-Admin Reason: IV Running Labs 03/25/23 10:32 03/26/23 06:00 Labs: Laboratory Results - last 24 hr 03/25/23 03/25/23 03/25/23 10:32 16:50 23:27 Anion Gap 13 12 Estim Creat Clear Calc 91.3 86.0 Estimated GFR > 60 > 60 Random Glucose 86 83 Calcium 11.3 H D 11.3 H Phosphorus 2.7 Total Bilirubin 0.7 Direct Bilirubin 0.3 AST 38 H ALT 19 Alkaline Phosphatase 61 Lactate Dehydrogenase 217 Total Protein 10.1 H Albumin 2.8 L Carcinoembryonic Ag 3.30 03/26/23 06:00 Anion Gap 10 L Estim Creat Clear Calc 91.3 Estimated GFR > 60 Random Glucose 76 Calcium 11.0 H Phosphorus Total Bilirubin Direct Bilirubin AST ALT Alkaline Phosphatase Lactate Dehydrogenase Total Protein Albumin Carcinoembryonic Ag Assessment and Plan (1) Malnutrition: Status: Acute (2) Mass of right lung: Status: Acute (3) Hypercalcemia: Status: Acute (4) Adult failure to thrive: Status: Acute Plan 72-year-old male no known past medical history, former smoker?(says smoker for 50yrs) came to the emergency room for 3-6 month history of progressive generalized weakness and fatigue, weight loss:? Found to have possible lung mass and hypercalcemia. 1. Hypercalcemia (?? Possible malignancy) Adjusted calcium is around 13.7 Patient received 2 L of IV fluid in the ED, also Lasix for hypercalcemia on ivf LR @125ml/hr , received pamidronate-today calcium around 11 PTH pending, added CEA and LDH. pulm and hematology evaluation noted-may need bronchoscopy. 2. Hyponatremia:? Multifactorial poor oral intake, malignancy improved IV fluid Monitor BMP Nephro evaluation since multiple electrolytic abnormalities including hyponatremia and hypercalcemia. 3. Malnutrition:?? Multifactorial malignancy, poor oral intake. Weight loss around 60 lb in last 6 months. Added nutrition evaluation, Ensure 4. Possible lung malignancy: Seems like have central lesion, will consult Pulmonary for needed biopsy-may need bronchoscopy added sputum for cytology. DVT prophylaxis:? SubQ heparin inaptient need - Hypercalcemia (?? Possible malignancy)-need ivf and close monitering of electrolytes,lung mass -need further workup bronchoscopy . Time Spent With Patient Time: Total time managing care of this patient today ____ minutes. Quality Stroke Does the patient have a stroke diagnosis?: No VTE Prior VTE?: No VTE Risk Level:: Medical - moderate - high VTE Device Contraindication: N/A - Device Ordered VTE Drug Contraindication: N/A - Med Ordered
--- NOTE | 2023-03-26 16:11 | P.CONNP_ITS ---
History of Present Illness Reason for Consult Consult date: 03/26/23 Chief Complaint Chief complaint: Hypercalcemia of malignancy Review of Systems Constitutional: Reports as per HPI, Denies anorexia, Denies lethargy and Denies malaise Cardiovascular: Reports no additional cardiovascular complaints Respiratory: Reports no additional respiratory complaints Gastrointestinal: Reports no additional gastrointestinal complaints [facility] Family History Pertinent family history: Denies any family history of any cancer Social History Social History Household Members: Other Household Members Other:: Lives with brother Housing: House Do you presently have visiting nurse or other home services: No Alcohol intake: never Patient Tobacco Use Status: Former Tobacco user Quit Date: 6 months ago Tobacco use type: Cigarette Cigarette Packs Per Day: 0.5 Years Smoked: 50 Substance Use Type: Marijuana Meds Allergies Allergy/AdvReac Type Severity Reaction Status Date / Time No Known Allergies Allergy Verified 03/25/23 10:00 Active Medications: Current Medications Albuterol/Ipratropium (Albuterol/Iprat 2.5/0.5mg 3 Ml Ampul.Neb) 3 ml INHALE RQ4H WHILE AWAKE [facility] Last Admin: 03/26/23 16:04 Dose: Not Given Heparin Sodium (Porcine) (Heparin Sodium,Porcine 5,000 Unit/Ml Vial) 5,000 unit SUBCUT Q12H [facility] Last Admin: 03/26/23 05:23 Dose: 5,000 unit Sodium Chloride (Ns) 1,000 mls @ 125 mls/hr IVCONT .Q8H [facility] Last Admin: 03/26/23 08:51 Dose: 125 mls/hr Albumin Human (Kedbumin 25 %) 100 mls @ 100 mls/hr IV Q6H [facility] Stop: 03/27/23 03:44 Last Admin: 03/26/23 10:01 Dose: Not Given Omeprazole (Omeprazole 20 Mg Capsule.Dr) 20 mg PO DAILY@0630 [facility] Last Admin: 03/26/23 05:23 Dose: 20 mg Ondansetron HCl (Ondansetron Hcl 4 Mg/2 Ml Vial) 4 mg IVPUSH Q4H PRN PRN Reason: Nausea Pharmacy Consult (Consult Rx Perform Med Rec) 1 each MISCELLANE ONCE PRN PRN Reason: Consult order Sodium Chloride (0.9 % Sodium Chloride Flush 3 Ml Syringe) 3 ml IVFLUSH QSHIFT [facility] Last Admin: 03/26/23 15:35 Dose: Not Given Home Medications Medication Instructions Recorded Confirmed Last Taken Type acetaminophen 325 mg tablet 650 mg PO Q6H PRN Pain 03/25/23 03/25/23 2 Days Ago History (Tylenol) ~03/23/23 Physical Exam Vital Signs: Last Vital Signs Temp 98.1 F 03/26/23 15:48 Pulse 78 03/26/23 15:48 Resp 20 03/26/23 15:48 BP 110/65 03/26/23 15:48 Pulse Ox 96 03/26/23 15:48 O2 Del Method Room Air 03/26/23 15:48 BMI result Body Mass Index 19.1 Const General: comfortable, alert and awake Orientation/consciousness: patient oriented x3 Resp Effort & Inspection: normal respiratory effort Auscultation: clear to auscultation bilaterally, no crackles, no rhonchi and no wheezes Cardio Palpation: normal PMI Rate: regular rate Rhythm: regular rhythm Heart sounds: no gallops and no murmurs GI Palpation (GI): Soft to palpation, nontender, No hepatosplenomegaly present and no masses Auscultation: normal bowel sounds Neuro General: patient oriented x3, no focal motor deficits and other (General muscle wasting is noted) Cranial nerves: Yes CN's II-XII intact bilaterally Extrem General: Yes normal to inspection, Yes no clubbing, cyanosis or edema and Yes no calf tenderness Results Lab Results 03/25/23 10:32 03/26/23 06:00 Lab results: Chemistry 03/25/23 03/25/23 03/25/23 10:32 16:50 23:27 Sodium 133 L 134 L 135 Potassium 4.2 4.1 3.6 Carbon Dioxide 24 20 L 23 BUN 16 16 15 Creatinine 0.74 0.65 0.69 Calcium 12.7 H* 11.3 H D 11.3 H Phosphorus 2.7 03/26/23 06:00 Sodium 135 Potassium 3.7 Carbon Dioxide 24 BUN 13 Creatinine 0.65 Calcium 11.0 H Phosphorus Hematology 03/25/23 10:32 WBC 9.1 Hgb 12.2 L Plt Count 238 Assessment and Plan (1) Malnutrition: Status: Acute (2) Mass of right lung: Status: Acute (3) Hypercalcemia: Status: Acute (4) Adult failure to thrive: Status: Acute Plan Mr. Gualberto Banks is a 72-year-old gentleman with no medical history who clearly has emphysema and a lung mass. He presents with failure to thrive and has Hyponatremia, Hyperclacemia, Low AG, all c/w malignancy (myeloma vs lung Ca). 1. Hypercalcemia Adjusted calcium is around 13.7 Patient received 2 L of IV fluid in the ED, also Lasix for hypercalcemia pt also s/p pamidronate on 03/25/23 Differential includes hyperCa of Malignancy (myeloma vs Lung Ca [place]) vs Hyperparathyroidism vs Sarcoid vs hypervitaminosis D Plan: - Sent for PTH, Vit D, MUMTAZ, SPEP, Immunofix, K/L Ratio - see if possible to send PTHrP - 0.9% saline for IVF at at 125cc/hr for hypercalcemia - no further iv lasix (only high doses cause Calciuresis) 2. Hyponatremia ?? pseudohyponatremia from myeloma otherwise this could likely be hypovolemic hyponatremia given the resolution with IVF support PLan: - myeloma work up as above - IVF support with isotonic crystalloid. Time Spent With Patient Time: Total time managing care of this patient today ____ minutes. Procedures Date of Service Date of Service: 03/26/23
[2023-03-26 17:14] LABS: Osmolality, Serum 289 mosm/kg (281-305)
[2023-03-26 17:17] LABS: Vitamin D 25-OH Total 11.2 ng/mL (>30)
[2023-03-26] MEDS: oxyCODONE HCl Immed Release 5 MG TABLET PO (22:43)
[2023-03-27] VITALS (7 sets, daily range): BP systolic 100–112; BP diastolic 59–66; PULSE 63–75; RESP 14–20; TEMP 36.3–37.1; O2SAT 92–97
[2023-03-27] MEDS: 0.9 % Sodium Chloride 1,000 ML 125 ML IVCONT ×2 (00:30→08:01)
[2023-03-27] MEDS: Omeprazole 20 MG CAPSULE.DR PO (05:27)
[2023-03-27] MEDS: Heparin Sodium,Porcine 5,000 UNIT/ML VIAL 5000 UNIT SUBCUT ×2 (05:27→15:38)
--- NOTE | 2023-03-27 07:30 | HO.PM.IMPN ---
Subjective Subjective Date of Service: 03/27/23 Interval History: Hypercalcemia, lung mass Review of Systems Patient said that his getting slowly better, denies any cough or phlegm, eating better. Denies any fever or chills Physical Exam Vital Signs: Vital Signs: Last Vital Signs Temp 97.3 F 03/27/23 04:00 Pulse 74 03/27/23 04:00 Resp 16 03/27/23 04:00 BP 100/60 03/27/23 04:00 Pulse Ox 95 03/27/23 04:00 O2 Del Method Room Air 03/27/23 04:00 BMI result Body Mass Index 19.1 Appearance: Alert.? Oriented X3.? not in distress.thin build, ch sick looking,?seems sad. cvs: rrr, [id number] . res: air entry fair ,few sacttered wheezing abd: no rebound or guarding ,nt, bs present. ext pulses present , no cyanosis . neuro: axo3 , nonfocal. Objective Data Active Medications Albuterol/Ipratropium (Albuterol/Iprat 2.5/0.5mg 3 Ml Ampul.Neb) 3 ml INHALE RQ4H WHILE AWAKE [facility] Last Admin: 03/26/23 19:43 Dose: 3 ml Documented By: BRIANNA Heparin Sodium (Porcine) (Heparin Sodium,Porcine 5,000 Unit/Ml Vial) 5,000 unit SUBCUT Q12H [facility] Last Admin: 03/27/23 05:27 Dose: 5,000 unit Documented By: JARVIS Sodium Chloride (Ns) 1,000 mls @ 125 mls/hr IVCONT .Q8H [facility] Last Admin: 03/27/23 00:30 Dose: 125 mls/hr Documented By: JARVIS Omeprazole (Omeprazole 20 Mg Capsule.) 20 mg PO DAILY@0630 [facility] Last Admin: 03/27/23 05:27 Dose: 20 mg Documented By: JARVIS Ondansetron HCl (Ondansetron Hcl 4 Mg/2 Ml Vial) 4 mg IVPUSH Q4H PRN PRN Reason: Nausea Pharmacy Consult (Consult Rx Perform Med Rec) 1 each MISCELLANE ONCE PRN PRN Reason: Consult order Sodium Chloride (0.9 % Sodium Chloride Flush 3 Ml Syringe) 3 ml IVFLUSH QSHIFT [facility] Last Admin: 03/27/23 07:11 Dose: Not Given Documented By: AUGUSTINA Non-Admin Reason: IV Running Labs 03/25/23 10:32 03/26/23 06:00 Labs: Laboratory Results - last 24 hr 03/26/23 03/26/23 16:26 16:26 Osmolality 289 25-OH Vitamin D Total 11.2 Assessment and Plan (1) Malnutrition: Status: Acute (2) Mass of right lung: Status: Acute (3) Hypercalcemia: Status: Acute Plan 72-year-old male no known past medical history, former smoker?(says smoker for 50yrs) came to the emergency room for 3-6 month history of progressive generalized weakness and fatigue, weight loss:? Found to have possible lung mass and hypercalcemia. 1. Hypercalcemia (?? Possible malignancy) Adjusted calcium is around 13.7 Patient received 2 L of IV fluid in the ED, also Lasix for hypercalcemia,received pamidronate calcium normalised PTH pending, normal CEA and LDH. SPEP,vitamin d levels ,immunology added nephro recomended to continue ivf for low rate -moniter serum /electrolytes for today. 2. Hyponatremia:? Multifactorial poor oral intake, malignancy improved IV fluid Monitor BMP 3. Malnutrition:?? Multifactorial malignancy, poor oral intake. Weight loss around 60 lb in last 6 months. Added nutrition evaluation, Ensure 4. Possible lung malignancy: Seems like have central lesion, will consult Pulmonary for needed biopsy-may need bronchoscopy added sputum for cytology. pulm and hematology evaluation noted-question patient noncompliance, unable to get biopsy done outpatient-currently recommended bronchoscopy preferably in patient( which will be possibly done early next week). DVT prophylaxis:? SubQ heparin inaptient need - Hypercalcemia (?? Possible malignancy)-need ivf and close monitering of electrolytes,lung mass -need further workup bronchoscopy . Time Spent With Patient Time: Total time managing care of this patient today ____ minutes. Quality Stroke Does the patient have a stroke diagnosis?: No VTE Prior VTE?: No VTE Risk Level:: Medical - moderate - high VTE Device Contraindication: N/A - Device Ordered VTE Drug Contraindication: N/A - Med Ordered
[2023-03-27] MEDS: Albuterol/Iprat 2.5/0.5MG 3 ML AMPUL.NEB INHALE ×2 (07:54→20:08)
[2023-03-27] MEDS: Cholecalciferol (Vitamin D3) 10 MCG TABLET PO (08:01)
[2023-03-27 08:04] LABS: Anion Gap 10 (12-20); Blood Urea Nitrogen 8 mg/dL (9-16); Calcium 9.1 mg/dL (8.4-10.2); Carbon Dioxide 21 mmol/L (22-29); Chloride 107 mmol/L (96-108); Creatinine Clr Calc Pharmacy 92.7; Estimated Glomerular Filt Rate > 60; Glucose Random 92 mg/dL (60-115); Potassium 3.5 mmol/L (3.3-5.1); Sodium 134 mmol/L (135-145)
--- NOTE | 2023-03-27 10:12 | MHC.CM.PN ---
Addendum entered by Eliza Jacobs 03/27/23 15:43: NEW HCP COMPLETED Original Note: PT REPORTS HE LIVES WITH HIS BROTHER AND IS INDEPENDENT WITH CARE HE HAS NO DME AND NO HOME SERVICES HE WILL COMPLETE A HCP NAMING HIS SISTER, MAHAD FARR [phone], HIS AGENT PCP: KHADRA DE OLIVEIRA IMM DELIVERED CURRENT DC PLAN IS HOME WITH NO SERVICES HIS SISTER WILL TRANSPORT
--- NOTE | 2023-03-27 13:14 | PM.PNNEP ---
Subjective Subjective Date of Service: 03/27/23 Interval history: hypercalcemia better Physical Exam Vital Signs: Vital Signs: Last Vital Signs Temp 98.5 F 03/27/23 07:28 Pulse 63 03/27/23 07:55 Resp 16 03/27/23 07:55 BP 109/62 03/27/23 07:28 Pulse Ox 94 03/27/23 07:28 O2 Del Method Room Air 03/27/23 07:28 BMI result Body Mass Index 19.1 Const: General: comfortable, alert and awake Orientation/consciousness: patient oriented x3 Resp: Effort & Inspection: normal respiratory effort Auscultation: clear to auscultation bilaterally, no crackles, no rhonchi and no wheezes Cardio: Palpation: normal PMI Rate: regular rate Rhythm: regular rhythm Heart sounds: no gallops and no murmurs GI: Palpation (GI): Soft to palpation, nontender, No hepatosplenomegaly present and no masses Auscultation: normal bowel sounds Neuro: General: patient oriented x3, no focal motor deficits and other (General muscle wasting is noted) Cranial nerves: Yes CN's II-XII intact bilaterally Extrem: General: Yes normal to inspection, Yes no clubbing, cyanosis or edema and Yes no calf tenderness Objective Data Labs 03/25/23 10:32 03/27/23 07:36 Labs: Laboratory Results - last 24 hr 03/26/23 03/26/23 03/27/23 16:26 16:26 07:36 Sodium 134 L Potassium 3.5 Chloride 107 Carbon Dioxide 21 L Anion Gap 10 L BUN 8 L Creatinine 0.64 Estim Creat Clear Calc 92.7 Estimated GFR > 60 Random Glucose 92 Osmolality 289 Calcium 9.1 D 25-OH Vitamin D Total 11.2 Procedures Date of Service Date of Service: 03/27/23 Assessment & Plan Assessment and plan (1) Malnutrition: Status: Acute (2) Mass of right lung: Status: Acute (3) Hypercalcemia: Status: Acute (4) Adult failure to thrive: Status: Acute Plan Mr. Gualberto Banks is a 72-year-old gentleman with no medical history who clearly has emphysema and a lung mass. He presents with failure to thrive and has Hyponatremia, Hyperclacemia, Low AG, all c/w malignancy (myeloma vs lung Ca). 1. Hypercalcemia Adjusted calcium is around 13.7 Patient received 2 L of IV fluid in the ED, also Lasix for hypercalcemia pt also s/p pamidronate on 03/25/23 Differential includes hyperCa of Malignancy (myeloma vs Lung Ca dayna mets) vs Hyperparathyroidism vs Sarcoid vs hypervitaminosis D Plan: - f/u PTH, Vit D, MUMTAZ, SPEP, Immunofix, K/L Ratio - see if possible to send PTHrP - OK to reduce 0.95 saline to maintenance rate. - no further iv lasix (only high doses cause Calciuresis) 2. Hyponatremia ?? pseudohyponatremia from myeloma otherwise this could likely be hypovolemic hyponatremia given the resolution with IVF support PLan: - myeloma work up as above - IVF support with isotonic crystalloid. Time Spent With Patient Time: Total time managing care of this patient today ____ minutes. Progress Note: Quality Stroke Does the patient have a stroke diagnosis?: No
[2023-03-27] MEDS: 0.9 % Sodium Chloride 1,000 ML 80 ML IVCONT (15:39)
[2023-03-28 03:35] VITALS: BP 104/64; PULSE 73; RESP 14; TEMP 36.5; O2SAT 95
[2023-03-28] MEDS: Heparin Sodium,Porcine 5,000 UNIT/ML VIAL 5000 UNIT SUBCUT (05:19)
[2023-03-28] MEDS: Omeprazole 20 MG CAPSULE.DR PO (05:24)
[2023-03-28 07:19] VITALS: BP 123/67; PULSE 70; RESP 18; TEMP 36.8; O2SAT 98
[2023-03-28 09:17] LABS: Anion Gap 10 (12-20); Blood Urea Nitrogen 6 mg/dL (9-16); Carbon Dioxide 24 mmol/L (22-29); Chloride 104 mmol/L (96-108); Creatinine Clr Calc Pharmacy 92.7; Estimated Glomerular Filt Rate > 60; Glucose Random 98 mg/dL (60-115); Potassium 3.2 mmol/L (3.3-5.1); Sodium 135 mmol/L (135-145)
[2023-03-28] MEDS: 0.9 % Sodium Chloride Flush 3 ML SYRINGE IVFLUSH ×2 (09:22→21:14)
[2023-03-28] MEDS: Cholecalciferol (Vitamin D3) 10 MCG TABLET PO (09:22)
--- NOTE | 2023-03-28 11:12 | PM.PNNEP ---
Subjective Subjective Date of Service: 03/28/23 Interval history: NO events Labs trending again as Low AGMA and hyper CA. ? Myeloma vs Other bone mets Physical Exam Vital Signs: Vital Signs: Last Vital Signs Temp 98.2 F 03/28/23 07:19 Pulse 70 03/28/23 07:19 Resp 18 03/28/23 07:19 BP 123/67 03/28/23 07:19 Pulse Ox 98 03/28/23 07:19 O2 Del Method Room Air 03/28/23 07:19 BMI result Body Mass Index 19.1 Const: General: comfortable, alert and awake Orientation/consciousness: patient oriented x3 Resp: Effort & Inspection: normal respiratory effort Auscultation: clear to auscultation bilaterally, no crackles, no rhonchi and no wheezes Cardio: Palpation: normal PMI Rate: regular rate Rhythm: regular rhythm Heart sounds: no gallops and no murmurs GI: Palpation (GI): Soft to palpation, nontender, No hepatosplenomegaly present and no masses Auscultation: normal bowel sounds Neuro: General: patient oriented x3, no focal motor deficits and other (General muscle wasting is noted) Cranial nerves: Yes CN's II-XII intact bilaterally Extrem: General: Yes normal to inspection, Yes no clubbing, cyanosis or edema and Yes no calf tenderness Objective Data Labs 03/25/23 10:32 03/28/23 08:47 Labs: Laboratory Results - last 24 hr 03/28/23 08:47 Sodium 135 Potassium 3.2 L Chloride 104 Carbon Dioxide 24 Anion Gap 10 L BUN 6 L Creatinine 0.64 Estim Creat Clear Calc 92.7 Estimated GFR > 60 Random Glucose 98 Calcium 9.0 Procedures Date of Service Date of Service: 03/28/23 Assessment & Plan Assessment and plan (1) Malnutrition: Status: Acute (2) Mass of right lung: Status: Acute (3) Hypercalcemia: Status: Acute (4) Adult failure to thrive: Status: Acute Plan Mr. Gualberto Banks is a 72-year-old gentleman with no medical history who clearly has emphysema and a lung mass. He presents with failure to thrive and has Hyponatremia, Hyperclacemia, Low AG, all c/w malignancy (myeloma vs lung Ca). 1. Hypercalcemia Adjusted calcium is around 13.7 Patient received 2 L of IV fluid in the ED, also Lasix for hypercalcemia pt also s/p pamidronate on 03/25/23 Differential includes hyperCa of Malignancy (myeloma vs Lung Ca dayna mets) vs Hyperparathyroidism vs Sarcoid vs hypervitaminosis D Plan: - f/u PTH, Vit D, MUMTAZ, SPEP, Immunofix, K/L Ratio (still all shows in process) - see if possible to send PTHrP - OK to reduce 0.95 saline to maintenance rate. - no further iv lasix (only high doses cause Calciuresis) 2. Hyponatremia ?? pseudohyponatremia from myeloma otherwise this could likely be hypovolemic hyponatremia given the resolution with IVF support PLan: - myeloma work up as above - IVF support with isotonic crystalloid. Time Spent With Patient Time: Total time managing care of this patient today ____ minutes. Progress Note: Quality Stroke Does the patient have a stroke diagnosis?: No
--- NOTE | 2023-03-28 11:54 | P.PNIM_ITS ---
Subjective Subjective Date of Service: 03/28/23 Interval History: Hypercalcemia, lung mass Review of Systems Patient said that his getting slowly better, denies any cough or phlegm, eating better. Denies any fever or chills Physical Exam Vital Signs: Vital Signs: Last Vital Signs Temp 98.2 F 03/28/23 07:19 Pulse 70 03/28/23 07:19 Resp 18 03/28/23 07:19 BP 123/67 03/28/23 07:19 Pulse Ox 98 03/28/23 07:19 O2 Del Method Room Air 03/28/23 07:19 BMI result Body Mass Index 19.1 Appearance: Alert.? Oriented X3.? not in distress.thin build, ch sick looking,?seems sad. cvs: rrr, [id number] . res: air entry fair ,few sacttered wheezing abd: no rebound or guarding ,nt, bs present. ext pulses present , no cyanosis . neuro: axo3 , nonfocal. Objective Data Active Medications Albuterol/Ipratropium (Albuterol/Iprat 2.5/0.5mg 3 Ml Ampul.Neb) 3 ml INHALE RQ4H WHILE AWAKE [facility] Last Admin: 03/28/23 08:36 Dose: Not Given Documented By: PUJA Non-Admin Reason: Patient Refused Heparin Sodium (Porcine) (Heparin Sodium,Porcine 5,000 Unit/Ml Vial) 5,000 unit SUBCUT Q12H [facility] Last Admin: 03/28/23 05:19 Dose: 5,000 unit Documented By: JARVIS Omeprazole (Omeprazole 20 Mg Shelly.) 20 mg PO DAILY@0630 [facility] Last Admin: 03/28/23 05:24 Dose: 20 mg Documented By: JARVIS Ondansetron HCl (Ondansetron Hcl 4 Mg/2 Ml Vial) 4 mg IVPUSH Q4H PRN PRN Reason: Nausea Pharmacy Consult (Consult Rx Perform Med Rec) 1 each MISCELLANE ONCE PRN PRN Reason: Consult order Sodium Chloride (0.9 % Sodium Chloride Flush 3 Ml Syringe) 3 ml IVFLUSH QSHIFT [facility] Last Admin: 03/28/23 09:22 Dose: 3 ml Documented By: AUGUSTINA Vitamin D (Cholecalciferol (Vitamin D3) 10 Mcg Tablet) 10 mcg PO DAILY [facility] Last Admin: 03/28/23 09:22 Dose: 10 mcg Documented By: AUGUSTINA Labs 03/25/23 10:32 03/28/23 08:47 Labs: Laboratory Results - last 24 hr 03/28/23 08:47 Anion Gap 10 L Estim Creat Clear Calc 92.7 Estimated GFR > 60 Random Glucose 98 Calcium 9.0 Assessment and Plan (1) Mass of right lung: Status: Acute Plan 72-year-old male no known past medical history, former smoker?(says smoker for 50yrs) came to the emergency room for 3-6 month history of progressive generalized weakness and fatigue, weight loss:? Found to have possible lung mass and hypercalcemia. 1. Hypercalcemia (?? Possible malignancy) intial calcium is around 13.7 Patient received 2 L of IV fluid in the ED, also Lasix for hypercalc emia,received pamidronate calcium normalised PTH pending, normal CEA and LDH. SPEP,vitamin d levels ,immunology added stop fluids. nephro following 2. Hyponatremia:? Multifactorial poor oral intake, malignancy improved IV fluid Monitor BMP 3. Malnutrition:?? Multifactorial malignancy, poor oral intake. Weight loss around 60 lb in last 6 months. Added nutrition evaluation, Ensure 4. Possible lung malignancy: Seems like have central lesion, will consult Pulmonary for needed biopsy-may need bronchoscopy added sputum for cytology. pulm and hematology evaluation noted-question patient noncompliance, unable to get biopsy done outpatient-currently recommended bronchoscopy preferably in patient( which will be possibly done early next week). DVT prophylaxis:? hold SubQ heparin-need biopsy ,scd inaptient? need -lung mass -need further workup bronchoscopy and biopsy in am . Time Spent With Patient Time: Total time managing care of this patient today ____ minutes. Quality Stroke Does the patient have a stroke diagnosis?: No VTE Prior VTE?: No VTE Risk Level:: Medical - moderate - high VTE Device Contraindication: N/A - Device Ordered VTE Drug Contraindication: N/A - Med Ordered
[2023-03-28] MEDS: Potassium Chloride Packet 20 MEQ PACKET PO (12:38)
[2023-03-28 15:27] VITALS: BP 102/62; PULSE 78; RESP 18; TEMP 36.9; O2SAT 96
[2023-03-28 19:38] VITALS: BP 128/72; PULSE 74; RESP 16; TEMP 37; O2SAT 98
[2023-03-29 04:00] VITALS: BP 106/71; PULSE 78; RESP 16; TEMP 36.8; O2SAT 96
[2023-03-29] MEDS: Omeprazole 20 MG CAPSULE.DR PO (05:38)
[2023-03-29 07:37] VITALS: BP 111/72; PULSE 87; RESP 18; TEMP 37.1; O2SAT 98
[2023-03-29] MEDS: Lactated Ringers 1,000 ML 80 ML IVCONT ×2 (08:06→19:53)
[2023-03-29] MEDS: Cholecalciferol (Vitamin D3) 10 MCG TABLET PO (08:06)
[2023-03-29] MEDS: 0.9 % Sodium Chloride Flush 3 ML SYRINGE IVFLUSH ×2 (08:13→19:53)
--- NOTE | 2023-03-29 08:54 | P.PNPL_ITS ---
Subjective Subjective Date of Service: 03/29/23 Interval history: The patient was seen and examined. IV reviewed his imaging studies. I do believe that he will benefit from endobronchial ultrasound bronchoscopy for a diagnostic intervention. The patient is scheduled for tomorrow at 07:30 am. The patient denies any chest pain or hemoptysis. Objective Data Labs 03/25/23 10:32 03/28/23 08:47 Labs: Laboratory Results - last 24 hr 03/28/23 08:47 Sodium 135 Potassium 3.2 L Chloride 104 Carbon Dioxide 24 Anion Gap 10 L BUN 6 L Creatinine 0.64 Estim Creat Clear Calc 92.7 Estimated GFR > 60 Random Glucose 98 Calcium 9.0 Review of Systems Constitutional: Reports as per HPI, Denies anorexia, Denies lethargy and Denies malaise Cardiovascular: Reports no additional cardiovascular complaints Respiratory: Reports no additional respiratory complaints Gastrointestinal: Reports no additional gastrointestinal complaints Physical Exam Vital Signs: Vital Signs: Last Vital Signs Temp 98.8 F 03/29/23 07:37 Pulse 87 03/29/23 07:37 Resp 18 03/29/23 07:37 BP 111/72 03/29/23 07:37 Pulse Ox 98 03/29/23 07:37 O2 Del Method Room Air 03/29/23 07:37 BMI result Body Mass Index 19.1 Appearance: Alert.? Oriented X3.? not in distress.thin build, ch sick look ing,?seems sad. cvs: rrr, [id number] . res: air entry fair ,few sacttered wheezing abd: no rebound or guarding ,nt, bs present. ext pulses present , no cyanosis . neuro: axo3 , nonfocal. Procedures Date of Service Date of Service: 03/29/23 Assessment and Plan Assessment and plan (1) Mass of right lung: Status: Acute Plan plan for EBUS tomorrow AM please keep NPO after midnight Time Spent With Patient Time: Total time managing care of this patient today ____ minutes. Progress Note: Quality Stroke Does the patient have a stroke diagnosis?: No
--- NOTE | 2023-03-29 10:22 | P.CDIM_ITS ---
PROVIDER RESPONSE TEXT: To clarify, the appropriate diagnosis supported by the clinical indicators: Clinically unable to determine (explain): unclear basline QUERY TEXT: PHYSICIAN'S DOCUMENTATION REQUEST Date of Query: 03/29/2023 09:47 AM EDT Patient Name: Gualberto Banks Admit Date: 03/25/2023 Dear Kojo Corrigan, A review of the medical record indicates additional documentation may be needed. Please review below and update the documentation accordingly. Clinical indicators: PN 03/28 - Malnutrition? multifactorial malignancy, poor oral intake. Weight loss around 60 lbs in the last six months. BMI 19 If possible, please provide additional specificity regarding the severity of the malnutrition using t he above information: Mild Moderate Severe Other (explain)Clinically unable to determine (explain)Thank you, Tianna Roca, CCS, CDIS Use of terms such as suspected, likely, concern for, or probable (associated with a specific diagnosi s that is being evaluated, monitored, or treated as if it exists) are acceptable and can be coded in the inpatient se tting, when documented at the time of discharge. Please use your independent medical judgment in providing your response. THIS QUERY IS PART OF THE PERMANENT MEDICAL RECORD
--- NOTE | 2023-03-29 11:34 | P.PNIM_ITS ---
Subjective Subjective Date of Service: 03/29/23 Interval History: lung mass Review of Systems patient is ?slowly better, denies any cough or phlegm, eating better. Denies any fever or chills Physical Exam Vital Signs: Vital Signs: Last Vital Signs Temp 98.8 F 03/29/23 07:37 Pulse 87 03/29/23 07:37 Resp 18 03/29/23 07:37 BP 111/72 03/29/23 07:37 Pulse Ox 98 03/29/23 07:37 O2 Del Method Room Air 03/29/23 07:37 BMI result Body Mass Index 19.1 Appearance: Alert.? Oriented X3.? not in distress.thin build, ch sick looking,?s eems sad. cvs: rrr, [id number] . res: air entry fair ,few sacttered wheezing abd: no rebound or guarding ,nt, bs present. ext pulses present , no cyanosis . neuro: axo3 , nonfocal. Objective Data Active Medications Albuterol/Ipratropium (Albuterol/Iprat 2.5/0.5mg 3 Ml Ampul.Neb) 3 ml INHALE RQ4H WHILE AWAKE [facility] Last Admin: 03/29/23 08:10 Dose: Not Given Documented By: SHANE Non-Admin Reason: Patient Refused Heparin Sodium (Porcine) (Heparin Sodium,Porcine 5,000 Unit/Ml Vial) 5,000 unit SUBCUT Q12H [facility] Last Admin: 03/28/23 05:19 Dose: 5,000 unit Documented By: JARVIS Lactated Ringer's (Lr) 1,000 mls @ 80 mls/hr IVCONT .[id number] [facility] Last Admin: 03/29/23 08:06 Dose: 80 mls/hr Documented By: DINORA Omeprazole (Omeprazole 20 Mg Capsule.) 20 mg PO DAILY@0630 [facility] Last Admin: 03/29/23 05:38 Dose: 20 mg Documented By: YVONNE Ondansetron HCl (Ondansetron Hcl 4 Mg/2 Ml Vial) 4 mg IVPUSH Q4H PRN PRN Reason: Nausea Pharmacy Consult (Consult Rx Perform Med Rec) 1 each MISCELLANE ONCE PRN PRN Reason: Consult order Sodium Chloride (0.9 % Sodium Chloride Flush 3 Ml Syringe) 3 ml IVFLUSH QSHIFT [facility] Last Admin: 03/29/23 08:13 Dose: 3 ml Documented By: DINORA Vitamin D (Cholecalciferol (Vitamin D3) 10 Mcg Tablet) 10 mcg PO DAILY [facility] Last Admin: 03/29/23 08:06 Dose: 10 mcg Documented By: DINORA Labs 03/25/23 10:32 03/28/23 08:47 Assessment and Plan (1) Malnutrition: Status: Acute (2) Mass of right lung: Status: Acute Plan 72-year-old male no known past medical history, former smoker?(says smoker for 50yrs) came to the emergency room for 3-6 month history of progressive generalized weakness and fatigue, weight loss:? Found to have possible lung mass and hypercalcemia. 1. Hypercalcemia (?? Possible malignancy) intial calcium is around 13.7 Patient received 2 L of IV fluid in the ED, also Lasix for hypercalcemia,received pamidronate calcium normalised PTH pending, normal CEA and LDH. SPEP,vitamin d levels ,immunology pending stop fluids,nephro following 2. Hyponatremia:? Multifactorial poor oral intake, malignancy improved IV fluid Monitor BMP 3. Malnutrition:likely moderate ?? Multifactorial malignancy, poor oral intake. Weight loss around 60 lb in last 6 months. continue Ensure,need nutrition evaluation. 4. Possible lung malignancy: Seems like have central lesion, will consult Pulmonary for needed biopsy-may need bronchoscopy added sputum for cytology but patient does not produce much sputum pulm and hematology evaluation noted-question patient noncompliance, unable to get biopsy done outpatient-currently recommended bronchoscopy preferably in patient( which will be possibly done next 1-2 days ). npo past midnight DVT prophylaxis:? hold SubQ heparin-need biopsy ,scd inaptient? need -lung mass -need further workup bronchoscopy and biopsy in am . Time Spent With Patient Time: Total time managing care of this patient today ____ minutes. Quality Stroke Does the patient have a stroke diagnosis?: No VTE Prior VTE?: No VTE Risk Level:: Medical - moderate - high VTE Device Contraindication: N/A - Device Ordered VTE Drug Contraindication: N/A - Med Ordered
--- NOTE | 2023-03-29 14:31 | MHC.CLN ---
NUTRITION CONSULT FOR MALNUTRITION. SIGNIFICANT, UNINTENTIONAL WEIGHT LOSS X 6 MONTHS, -26%. REPORTS DECREASED INTAKE AND WEIGHT LOSS OVER PAST 6 MONTHS. QUALIFIES SEVERELY MALNOURISHED IN THE CONTEXT OF CHRONIC ILLNESS. DISLIKES ENSURE SUPPLEMENT. ADDING THRIVE FORTIFIED ICE CREAM BID. PROVIDES ADDITIONAL [address], [address] TO FOLLOW FOR INTAKE AND WEIGHT.
[2023-03-29 14:35] VITALS: BMI 19.1
--- NOTE | 2023-03-29 14:36 | MHC.CM.PN ---
PATIENT TO REMAIN TONIGHT. PLAN IS FOR BIOPSY Wednesday03/30/23
[2023-03-29 15:04] VITALS: BP 111/72; PULSE 87; O2SAT 98
[2023-03-29 15:10] VITALS: BP 110/63; PULSE 82; TEMP 37.3; O2SAT 98
[2023-03-29 15:34] LABS: Calcium (PTHI) 10.9 mg/dL (8.6-10.3); PTHI <6 pg/mL (16-77)
[2023-03-29 19:42] VITALS: BP 111/55; PULSE 71; RESP 16; TEMP 36.8; O2SAT 98
[2023-03-30] VITALS (9 sets, daily range): BP systolic 91–107; BP diastolic 57–69; PULSE 72–91; RESP 15–20; TEMP 36.8–37.4; O2SAT 93–99
[2023-03-30] MEDS: Omeprazole 20 MG CAPSULE.DR PO (05:29)
[2023-03-30 06:41] LABS: Anion Gap 9 (12-20); Blood Urea Nitrogen 8 mg/dL (9-16); Calcium 8.7 mg/dL (8.4-10.2); Carbon Dioxide 23 mmol/L (22-29); Chloride 105 mmol/L (96-108); Creatinine Clr Calc Pharmacy 104.1; Estimated Glomerular Filt Rate > 60; Glucose Random 94 mg/dL (60-115); Potassium 3.4 mmol/L (3.3-5.1); Sodium 134 mmol/L (135-145)
--- NOTE | 2023-03-30 07:15 | P.CONAN_ITS ---
[facility] Active Problems Active Problems: All Active Problems (Updated 03/30/23 @ 06:54 by Alana Cordova RN) Mass of right lung (Acute) Hypercalcemia (Acute) Adult failure to thrive (Acute) Malnutrition (Acute) Past Medical History Medical History Edema Surgical History History of Problems with Anesthesia: No Social History Social History Household Members: Other Household Members Other:: Lives with brother Housing: House Do you presently have visiting nurse or other home services: No Alcohol intake: never Patient Tobacco Use Status: Current everyday Tobacco user Tobacco use type: Cigarette Cigarette Packs Per Day: 0.5 Cigarettes Per Day: 10 Years Smoked: 50 Substance Use Type: Marijuana service: No Meds Allergies Allergy/AdvReac Type Severity Reaction Status Date / Time No Known Allergies Allergy Verified 03/25/23 10:00 Active Medications: Current Medications Albuterol/Ipratropium (Albuterol/Iprat 2.5/0.5mg 3 Ml Ampul.Neb) 3 ml INHALE RQ4H WHILE AWAKE [facility] Last Admin: 03/30/23 07:14 Dose: Not Given Heparin Sodium (Porcine) (Heparin Sodium,Porcine 5,000 Unit/Ml Vial) 5,000 unit SUBCUT Q12H [facility] Last Admin: 03/28/23 05:19 Dose: 5,000 unit Lactated Ringer's (Lr) 1,000 mls @ 80 mls/hr IVCONT .[id number] [facility] Last Infusion: 03/30/23 06:21 Dose: 0 mls/hr Omeprazole (Omeprazole 20 Mg Capsule.Dr) 20 mg PO DAILY@0630 [facility] Last Admin: 03/30/23 05:29 Dose: 20 mg Ondansetron HCl (Ondansetron Hcl 4 Mg/2 Ml Vial) 4 mg IVPUSH Q4H PRN PRN Reason: Nausea Pharmacy Consult (Consult Rx Perform Med Rec) 1 each MISCELLANE ONCE PRN PRN Reason: Consult order Sodium Chloride (0.9 % Sodium Chloride Flush 3 Ml Syringe) 3 ml IVFLUSH QSHIFT [facility] Last Admin: 03/29/23 19:53 Dose: 3 ml Vitamin D (Cholecalciferol (Vitamin D3) 10 Mcg Tablet) 10 mcg PO DAILY [facility] Last Admin: 03/29/23 08:06 Dose: 10 mcg Home Medications Medication Instructions Recorded Confirmed Last Taken Type acetaminophen 325 mg tablet 650 mg PO Q6H PRN Pain 03/25/23 03/25/23 2 Days Ago History (Tylenol) ~03/23/23 Exam Exam Date and Time: March 30, 2023 0715 Height,Weight and Vital Signs: Height 6 ft Weight 63.8 kg Last Vital Signs Temp 98.3 F 03/30/23 06:57 Pulse 76 03/30/23 06:57 Resp 16 03/30/23 06:57 BP 99/67 03/30/23 06:57 Pulse Ox 98 03/30/23 06:57 O2 Del Method Room Air 03/30/23 06:57 Pertinent Lab Results Pertinent Lab Results: Laboratory Tests 03/25/23 03/25/23 03/25/23 10:32 10:32 10:32 WBC 9.1 RBC 4.21 L Hgb 12.2 L Hct 38.9 L MCV 92.4 MCH 29.0 MCHC 31.4 RDW 14.0 Plt Count 238 MPV 9.3 L Immature Gran % (Auto) 0.6 H Neut % (Auto) 77.2 H Lymph % (Auto) 11.0 L [place] % (Auto) 10.8 Eos % (Auto) 0.1 Baso % (Auto) 0.3 Lymph # (Auto) 1.0 L [place] # (Auto) 1.0 Eos # (Auto) 0.0 Baso # (Auto) 0.0 Abs Immat Gran (auto) 0.05 H Absolute Neuts (auto) 7.0 Absolute Nucleated RBC 0.000 Nucleated RBC % (auto) 0.0 Sodium 133 L Potassium 4.2 Chloride 99 Carbon Dioxide 24 Anion Gap 14 BUN 16 Creatinine 0.74 Estim Creat Clear Calc 80.2 Estimated GFR > 60 Random Glucose 90 Osmolality Calcium 12.7 H* Phosphorus 2.7 Total Bilirubin 0.7 Direct Bilirubin 0.3 AST 38 H ALT 19 Alkaline Phosphatase 61 Lactate Dehydrogenase Troponin I High Sens 4.7 Total Protein 10.1 H Albumin 2.8 L Carcinoembryonic Ag 25-OH Vitamin D Total PTH Intact Calcium (PTH Intact) 03/25/23 03/25/23 03/25/23 13:17 16:50 23:27 WBC RBC Hgb Hct MCV MCH MCHC RDW Plt Count MPV Immature Gran % (Auto) Neut % (Auto) Lymph % (Auto) [place] % (Auto) Eos % (Auto) Baso % (Auto) Lymph # (Auto) [place] # (Auto) Eos # (Auto) Baso # (Auto) Abs Immat Gran (auto) Absolute Neuts (auto) Absolute Nucleated RBC Nucleated RBC % (auto) Sodium 134 L 135 Potassium 4.1 3.6 Chloride 105 104 Carbon Dioxide 20 L 23 Anion Gap 13 12 BUN 16 15 Creatinine 0.65 0.69 Estim Creat Clear Calc 91.3 86.0 Estimated GFR > 60 > 60 Random Glucose 86 83 Osmolality Calcium 11.3 H D 11.3 H Phosphorus Total Bilirubin Direct Bilirubin AST ALT Alkaline Phosphatase Lactate Dehydrogenase 217 Troponin I High Sens Total Protein Albumin Carcinoembryonic Ag 3.30 25-OH Vitamin D Total PTH Intact <6 L Calcium (PTH Intact) 10.9 H 03/26/23 03/26/23 03/26/23 06:00 16:26 16:26 WBC RBC Hgb Hct MCV MCH MCHC RDW Plt Count MPV Immature Gran % (Auto) Neut % (Auto) Lymph % (Auto) [place] % (Auto) Eos % (Auto) Baso % (Auto) Lymph # (Auto) [place] # (Auto) Eos # (Auto) Baso # (Auto) Abs Immat Gran (auto) Absolute Neuts (auto) Absolute Nucleated RBC Nucleated RBC % (auto) Sodium 135 Potassium 3.7 Chloride 105 Carbon Dioxide 24 Anion Gap 10 L BUN 13 Creatinine 0.65 Estim Creat Clear Calc 91.3 Estimated GFR > 60 Random Glucose 76 Osmolality 289 Calcium 11.0 H Phosphorus Total Bilirubin Direct Bilirubin AST ALT Alkaline Phosphatase Lactate Dehydrogenase Troponin I High Sens Total Protein Albumin Carcinoembryonic Ag 25-OH Vitamin D Total 11.2 PTH Intact Calcium (PTH Intact) 03/27/23 03/28/23 03/30/23 07:36 08:47 05:28 WBC RBC Hgb Hct MCV MCH MCHC RDW Plt Count MPV Immature Gran % (Auto) Neut % (Auto) Lymph % (Auto) [place] % (Auto) Eos % (Auto) Baso % (Auto) Lymph # (Auto) [place] # (Auto) Eos # (Auto) Baso # (Auto) Abs Immat Gran (auto) Absolute Neuts (auto) Absolute Nucleated RBC Nucleated RBC % (auto) Sodium 134 L 135 134 L Potassium 3.5 3.2 L 3.4 Chloride 107 104 105 Carbon Dioxide 21 L 24 23 Anion Gap 10 L 10 L 9 L BUN 8 L 6 L 8 L Creatinine 0.64 0.64 0.57 Estim Creat Clear Calc 92.7 92.7 104.1 Estimated GFR > 60 > 60 > 60 Random Glucose 92 98 94 Osmolality Calcium 9.1 D 9.0 8.7 Phosphorus Total Bilirubin Direct Bilirubin AST ALT Alkaline Phosphatase Lactate Dehydrogenase Troponin I High Sens Total Protein Albumin Carcinoembryonic Ag 25-OH Vitamin D Total PTH Intact Calcium (PTH Intact) Airway Mallampati Class: III TM Dist: >3cm Neck ROM: Full Denture: Upper Loose/Missing/Broken Teeth: Yes, Upper and Lower Heart: RRR Lungs: CTA BUT DISTANT Assessment and Plan Assessment Anesthesia Assessment: Anesthesia Plan Discussed and Chart Reviewed Final Anesthetic Review History of Problems with Anesthesia: No NPO: Yes ASA Class: IV Final Preanesthetic Review: Meds/Allgs Chart Reviewed, Consent Obtained/Reviewed and Anes Risks/Benef Reviewed Patient Risk: Intermediate Procedure Risk: Intermediate Anesthetic Plan Anesthetic Plan: GA Disposition: Standard PACU
--- NOTE | 2023-03-30 07:40 | MHC.SHP ---
Pre-Procedural Eval Section A Date of Service: 03/30/23 The patient is an INPATIENT: Yes Section B Chief Complaint: Hypercalcemia of malignancy Allergies: Allergies Allergy/AdvReac Type Severity Reaction Status Date / Time No Known Allergies Allergy Verified 03/25/23 10:00 Plan I have reviewed the history and physical and performed a pertinent physical examination on my patient. No changes have occurred unless specified. Time Spent With Patient Time: Total time managing care of this patient today ____ minutes.
--- NOTE | 2023-03-30 08:18 | PM.DS ---
DS: Providers Provider Date of Service: 03/30/23 Date of admission: 03/25/23 16:18 Primary care physician: Sreekanth Reyes PA-C Consults: 03/25/23 15:26 Consult to Hematology / Oncology Stat Consulting Provider: Michaelle Ruvalcaba Reason for consultation: new lung cancer, hypercalcemia Has provider been notified: Yes 03/25/23 16:20 Consult to Hematology / Oncology Routine Consulting Provider: Belia Porter Reason for consultation: Hypercalcemia of malignancy Has provider been notified: No Consult to Nephrology Routine Consulting Provider: Luis Antonio Alan Reason for consultation: Hypercalcemia malignancy Has provider been notified: No Consult to Pulmonology Routine Consulting Provider: [facility] Reason for consultation: central lung mass Has provider been notified: No DS: Diagnosis Discharge Diagnosis (1) Malnutrition: Status: Acute (2) Mass of right lung: Status: Acute DS: Summary Hospital Course Hospital Course: Chief Complaint: lung mass /hypercalcemia 72-year-old male no known past medical history, former smoker?(says smoker for 50yrs) came to the emergency room for 3-6 month history of progressive generalized weakness and fatigue, weight loss.? He said that from last 6 months he is getting progressively weak, appetite decreasing, is losing weight-from last 2 week it was difficult for him to move around so he went to the hospital([facility] in [place])-where he was told that he probably will need biopsy(but he said he could not get biopsy due to insurance issues):? Subsequently went home and was getting more fatigue and week so decided to come to the hospital. In addition patient says he has cough almost 3 month duration as well as chest tightness? whenever he coughs. Also has nausea almost 3 months duration Denies any hemoptysis, or shortness of breath or fever or chills or? vomiting or any muscle twitching or palpitations or headaches or lightheadedness or blurred vision. On exam denies chest pain. Lab imaging reviewed: H&H 12.2 Sodium 133, adjusted calcium for albumin is around 13.7 Total protein is 10.1, albumin is 2.8 Troponin x1 negative, EKG: nsr ,no significant st changes. PTH pending Chest CT shows:: 1.? Central right lung mass impossible to separate from the hilar structures. This is highly suspicious for malignancy. There is associated mediastinal lymphadenopathy. 2.? Moderate to severe emphysema. Hospital course: Patient presented with increased fatigue, weight loss (bmi 19) . Work up revealed Hypercalcemia as high as 13, and CT of chest show lung masss. The hypercalemia is presumed to be related to malignancy. This was was treated with IV fluid, Iasix, and pamidronate. LDH level is over 200, PTH is low, CEA 3.5 of unclear significance. As for lung mass he underwent bronchoscopy with biopsy on 03/30/[address] Alan and should follow with oncology clinic for review of biopsy and treatment options. Also had mild hyponatremia of 134 likley from malnutrition. Final diagnoses: Hypercalcemia Lung mass HypOnatremia Adult failure to thrive Mild protein calory maluntrition Time Spent with Patient Time attestation: Total time managing care of this patient today ____ minutes. Discharge coordination time: Greater than 30 minutes Quality: Safe Use of Opioids Does Pt have an Active Cancer Diagnosis on the Problem List?: No Quality: Stroke Does the patient have a stroke diagnosis?: No Physical Exam Vital Signs: Vital Signs: Last Vital Signs Temp 98.3 F 03/30/23 06:57 Pulse 76 03/30/23 06:57 Resp 16 03/30/23 06:57 BP 99/67 03/30/23 06:57 Pulse Ox 98 03/30/23 06:57 O2 Del Method Room Air 03/30/23 06:57 BMI result Body Mass Index 19.1 Const: Other: General: AO X 3, no acute distress, cachectic Resp: CTA bilateral CVS: S1,S2,RRR GI: +BS, NT, no distention Skin: No rash Neuro: motor grossly intact Psych: appropriate affect DS: Data Data Completed and Pending Pending studies at discharge: Pending at discharge 03/26/23 11:56 Cytology [PTH] Urgent 03/27/23 10:08 Cytology [PTH] Routine Labs on day of discharge: Laboratory Results - last 24 hr 03/25/23 03/30/23 13:17 05:28 Sodium 134 L Potassium 3.4 Chloride 105 Carbon Dioxide 23 Anion Gap 9 L BUN 8 L Creatinine 0.57 Estim Creat Clear Calc 104.1 Estimated GFR > 60 Random Glucose 94 Calcium 8.7 PTH Intact <6 L Calcium (PTH Intact) 10.9 H Discharge Plan Discharge Anticipated Discharge Date/Time: 03/30/23 08:17 Patient Disposition: Home Health Service Discharge Diagnosis: Lung mass, hypercalcemia, hyponatremia, adult failure to thrive Referrals: [facility] [Outside] - 1 Week (HOME SERVICES FOR LONGTERM AND PHYSICAL THERAPY- A NURSE WILL CALL YOU TO SET UP FIRST VISIT) Sreekanth Reyes PA-C [Primary Care Provider] - 1 Week Discharge Medications: Continued acetaminophen [Tylenol] 325 mg Tablet 650 mg PO Q6H PRN (Reason: Pain) Discharge Orders: Discharge Order (Routine); Ordered 03/30/23 Ordered By: Jordan Mathews Diet: Advance to usual diet Activity on Discharge: As tolerated Stand Alone Forms: Patient Portal Discharge page Other Ambulatory Orders: MR head/brain wo con (Routine) Timeframe: 1 Week Facility: [facility] - Location: MRI Ordered By: Jordan Mathews Care Plan Goals: full work up of lung mass and high calcium Health Concerns: weight loss, high calcium and lung mass Plan of Treatment: Follow up with oncology clinic to review biopsy result You will have a MRI of head done on outpatient basis within a week Assessment: As above Discharge Date/Time: 03/30/23 14:12
--- NOTE | 2023-03-30 08:59 | P.BOP_ITS ---
Brief Operative Note Date of Service: 03/30/23 Pre-op diagnosis: lung mass Post-op diagnosis: other (lung cancer) Procedure: EBUS and TBNA 2 stations, brmonchoscopy with washings Surgeon: Johnathan Alan MD Anesthesia: GETA Was an Table Worker used for this Procedure?: No Estimated blood loss (mL): 0 Pathology: other (TBNA station 4R, 7) Condition: stable Disposition: floor
[2023-03-30] MEDS: 0.9 % Sodium Chloride Flush 3 ML SYRINGE IVFLUSH (09:39)
[2023-03-30] MEDS: Lactated Ringers 1,000 ML 80 ML IVCONT (09:40)
--- NOTE | 2023-03-30 10:25 | MHC.CM.PN ---
PATIENT AGREES TO A TASK FOR EC SERVICES, NOW PLACED.
[2023-03-30] MEDS: Cholecalciferol (Vitamin D3) 10 MCG TABLET PO (10:39)
--- NOTE | 2023-03-30 10:47 | MHC.CM.PN ---
DP: IMM DELIVERED. PT HAS BEEN MEDICALLY CLEARED FOR DC HOME, P.T. HAS RECOMMENDED HOME SERVICES AND REFERRAL SENT TO [facility] WHO CAN ACCEPT PENDING MD VERIFICATION. MD AWARE. SISTER WILL TRANSPORT HOME.
--- NOTE | 2023-03-30 11:04 | W.MHC.F2F ---
Service Date Service Date: 03/30/23 Encounter Date of encounter: 03/30/23 Reasons for Services Signs and symptoms assessed: weakness, wait loss, lung mass concern for cancer Reason for nursing home: teach disease management Reason for physical therapy: home safety and mobility and therapeutic exercises Homebound: Leaving the home is medically contraindicated at this time without the asist of a device and/or another person due th the listed conditions above and below. Reason homebound: unsteady gait / fall risk Homebound supporting statement: homebound due to fall risk due to weakness and therefore at risk for falls Certification: Based on the above findings, I certify that this patient is confined to the home and needs intermittent nursing home care, physical therapy and/or speech therapy, or continues to need occupational therapy. The patient is under my care, and I have initiated the establishment of the plan of care. The patient will be followed by a physician who will periodically review the plan of care. Time Spent With Patient Time: Total time managing care of this patient today ____ minutes.
--- NOTE | 2023-03-30 12:05 | OP_ITS ---
DATE OF SERVICE: 03/30/2023 SURGEON: Johnathan Alan MD PREOPERATIVE DIAGNOSIS: Lung mass. POSTOPERATIVE DIAGNOSIS: Lung cancer. PROCEDURE PERFORMED: Bronchoscopy. ESTIMATED BLOOD LOSS: COMPLICATIONS: ANESTHESIA: General. ASSISTANTS: None. SPECIMENS: DESCRIPTION OF PROCEDURE: After the patient was adequately sedated and intubated, the ultrasound bronchoscopy EBUS was inserted via the ET-tube to the level of the main geraldo. Using ultrasound guidance, there was significant bulky lymphadenopathy and the mediastinum and also of the hilum. Using a 19-gauge needle, transbronchial needle aspirations were initially collected from station 4R. The on-site guard supervisor document evidence of abnormal cells suggestive of small cell versus lymphoma. Fluid was sent as documented sample both for cytology and also for flow cytometry. After 5 passes, station 4R, we then moved to station 7. Patient then had a small pericardial effusion noted. Three passes of the transparent needle aspirations were collected and sent also for cytology and also for flow cytometry. The EBUS scope was then removed and replaced with regular bronchoscope. The tracheobronchial tube was examined with a regular Q-180 bronchoscopy. Bronchial washings were collected bilaterally some for cytology and microbiology. The bronchoscope was then removed. The total endoscopic time approximately half an hour. Patient tolerated procedure well. Vital signs were stable throughout the procedure. No apparent complications noted and no evidence of any bleeding. The patient will return to the medical floor. MD YOANNA Loyd/TRE / [id number]
[2023-03-30 23:07] LABS: Prot Elec - Albumin 2.2 g/dL (3.8-4.8); Prot Elec - Alpha1 0.5 g/dL (0.2-0.3); Prot Elec - Alpha2 1.2 g/dL (0.5-0.9); Prot Elec - Beta 1 0.4 g/dL (0.4-0.6); Prot Elec - Beta 2 0.3 g/dL (0.2-0.5); Prot Elec - Gamma 2.5 g/dL (0.8-1.7); Prot Elec - Total Protein 7.1 g/dL (6.1-8.1)
[2023-03-31 14:13] LABS: IgA 241 mg/dL (70-320); IgG 3007 mg/dL (600-1540); IgM 255 mg/dL (50-300)
[2023-03-31 14:18] LABS: Calcium (PTHI) 9.2 mg/dL (8.6-10.3); PTHI 6 pg/mL (16-77)
[2023-04-01 13:22] LABS: VITAMIN D (1,25 OH) D3 18 pg/mL; Vit D (1,25-Dihydroxy) Total 18 pg/mL (18-72); Vitamin D (1,25 OH) D2 <8 pg/mL
[2023-04-01 16:34] LABS: Kappa, Serum 834 mg/dL (176-443); Kappa/Lambda Ratio, Serum 3.52 (1.29-2.55); Lambda, Serum 237 mg/dL (91-240)
[2023-04-20 13:34] LABS: Angiotensin Converting Enzyme 21.4
== END 2023-03-30 14:12 | disposition home health service (06) | DRG 181 ==
LOC: HO.ED 14:19 → HO.EDOVER 16:23 → HO.S3 16:52
PROVIDERS: Hospitalist; Internal Medicine Nephrology; Physician Assistant; Admitting Provider Internal Medicine; Emergency Provider Emergency Medicine; PCP Physician Assistant; Visit Provider Internal Medicine
PROC: 0BD28ZX Extraction of Carina, Via Natural or Artificial Opening Endoscopic, Diagnostic (ICD-10-PCS; principal; 2023-03-30 07:30)
DX: C34.01 Malignant neoplasm of right main bronchus (principal); C79.51 Secondary malignant neoplasm of bone; E87.1 Hypo-osmolality and hyponatremia; E44.0 Moderate protein-calorie malnutrition; Z68.1 Body mass index [BMI] 19.9 or less, adult; E88.09 Other disorders of plasma-protein metabolism, not elsewhere classified; E83.52 Hypercalcemia; Z87.891 Personal history of nicotine dependence
CPT/HCPCS: 36415; 71046; 71260; 80048; 80076; 82164; 82306; 82378; 82652; 82784; 83615; 83883; 83930; 83970; 84100; 84165; 84484; 85025; 86334; 87070; 87077; 87185; 87205; 88112; 88172; 88173; 88305; 88341; 88342; 93005; 94640; 97116; 97161; 99285; J0171; J1643; J2250; J2405; J2430; J3010; P9047; Q9967

== ENCOUNTER → 2023-04-15 09:07 | Outpatient (BNV) | payer OTHER, SELFPAY | PROVIDERS: PCP Physician Assistant; Visit Provider Internal Medicine | DX: C34.92 Malignant neoplasm of unspecified part of left bronchus or lung (principal); E83.52 Hypercalcemia; D38.1 Neoplasm of uncertain behavior of trachea, bronchus and lung; E87.1 Hypo-osmolality and hyponatremia | CPT/HCPCS: 99214; 99215 ==

== ENCOUNTER 2023-04-19 14:50 | Outpatient (AMB) | payer OTHER, SELFPAY ==
[2023-04-19 14:54] VITALS: BP 90/62; PULSE 111; O2SAT 99; BMI 17.0
--- NOTE | 2023-04-19 14:54 | MHC.PC.OV ---
Vital Signs 04/19/23 14:54 Height 6 ft Weight 125 lb 3.561 oz BMI 17.0 BP 90/62 Blood Pressure Location Lt brachial Position Sitting Pulse 111 H Pulse Source Pulse Oximeter Temp Source Skin Pulse Oximetry (%) 99 Oxygen Delivery Method Room Air Intake Visit Reasons: new patient Intake Note: pt in need of a walker [employer] Required: No Allergies No Known Allergies Allergy (Verified 04/19/23 15:45) Medication List - Last Reconciled 04/19/23 by Sreekanth Reyes PA-C acetaminophen (Tylenol) 650 mg PO Q6H PRN walker As Directed Tobacco use date assessed: 04/19/23 Fall risk assessment: 2 + Falls in past year Last assessed Fall Risk: 04/19/23 Dental Screening Dental Screen Date: 04/19/23 Did you have a dental visit in the last 12 months?: No Did you have a dental problem in the last 6 months where you did not have access to dental care?: No HPI new patient HPI Details Patient is a 72-year-old male here today for new patient visit. Patient recently admitted to [facility] for failure to thrive and found to a lung mass. 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 Patient has a past medical history of being a former smoker for 50 years. Quit about 8 months ago Patient has followed up with Oncology and will be getting staging including brain MRI. Has been having difficulties with swallowing and has been referred to barium swallow to evaluate swallowing issue. Otherwise lives at home with his sisters whom take care of him. Does have home visiting nurses and therapists recommend supply patient with walker. Of note patient did 2 falls as of late near his bathroom. Has been having significant generalized weakness likely secondary to his lung cancer. Would benefit from walker and likely safety grab bars in his bathroom. [facility] Medical History Edema Lung cancer Family History (Updated 04/19/23 @ 15:57 by Sreekanth Reyes PA-C) Brother Esophageal cancer Social History Household Members: Other Household Members Other:: Lives with brother Housing: House Do you presently have visiting nurse or other home services: No Alcohol intake: never Patient Tobacco Use Status: Former Tobacco user Quit Date: 6 months ago Tobacco use type: Cigarette Cigarette Packs Per Day: 0.5 Years Smoked: 50 // quit 6-7 months ago Substance Use Type: Marijuana service: No Cognitive needs: No Hearing needs: No Vision needs: No Questionnaire PHQ-9 Over the last 2 weeks, how often have you been bothered by any of the following problems? 1. Little interest or pleasure in doing things: not at all 2. Feeling down, depressed, or hopeless: not at all 3. Trouble falling or staying asleep, or sleeping too much: not at all 4. Feeling tired or having little energy: not at all 5. Poor appetite or overeating: not at all 6. Feeling bad about yourself - or that you are a failure or have let yourself or your family down: not at all 7. Trouble concentrating on things, such as reading the newspaper or watching television: not at all 8. Moving or speaking so slowly that other people could have noticed. Or the opposite - being so fidgety or restless that you have been moving around a lot more than usual: not at all 9. Thoughts that you would be better off or of hurting yourself in some way: not at all Total score: 0 Depression Screening Interpretation: Negative Source: Developed by Drs. Yandel Reina, Nika Batista, Davon Ballard and colleagues, with an educational yuridia from [employer]. Thrive Questionnaire Date Thrive assessed: 03/27/23 I am a: Patient What is your living situation today?: I have a steady place to live Within the past 12 months, did the food you bought not last and you didn't have the money to get more?: Never true Within the past 12 months, did you worry whether your food would run out before you got money to buy more?: Never true AUDIT C Alcohol Use Questionnaire (AUDIT-C) 1. How often do you have a drink containing alcohol?: Never 3. How often do you have six or more drinks on one occasion?: Never Total Score: 0 ITZEL-7 AMB Questionnaire ITZEL-7 Date ITZEL - 7 assessed: 04/19/23 Feeling nervous, anxious, or on edge: 0 = Not at all Not being able to stop or control worryin = Not at all Worrying too much about different things: 0 = Not at all Trouble relaxin = Not at all Being so restless that it is hard to sit still: 0 = Not at all Becoming easily annoyed or irritable: 0 = Not at all Feeling afraid as if something awful might happen: 0 = Not at all Total ITZEL-7 score (0-4 normal; 5-9 mild; 10-14 moderate; 15-21 severe): 0 Source: Developed by Drs. Yandel Reina, Nika Batista, Davon Ballard and colleagues, with an educational yuridia from [employer]. Review of Systems Const Denies headache(s) Eyes Denies loss of vision ENT Denies vertigo, Denies dizziness, Denies headache(s) and Denies sore throat Card Denies chest pain, Denies leg edema and Denies lightheadedness Resp Denies cough, Denies hemoptysis and Denies wheezing GI Denies abdominal pain, Denies melena, Denies constipation, Denies diarrhea and Denies vomiting Denies dysuria, Denies urinary frequency and Denies urinary urgency Musc Denies arthralgias, Denies joint swelling, Denies numbness and Denies tingling Neuro Denies Abnormal speech present, Denies behavioral changes, Denies vertigo, Denies dizziness, Denies headache(s), Denies loss of vision, Denies memory loss, Denies numbness and Denies tingling Psych Denies anxiety, Denies behavioral changes, Denies depression, Denies memory loss and Denies panic attacks To/Lymph Denies easy bleeding and Denies easy bruising Aller/Immun Denies wheezing Physical exam (Primary Care) Vital Signs: Last Vital Signs Pulse 111 H 04/19/23 14:54 BP 90/62 04/19/23 14:54 Pulse Ox 99 04/19/23 14:54 Oxygen Delivery Method Room Air 04/19/23 14:54 BMI result Body Mass Index 17.0 BMI Assessment/Plan discussion: Low Tobacco/Smoking Status: Tobacco use Status Tobacco use date assessed 04/19/23 04/19/23 14:55 Patient Tobacco Use Status Former Tobacco user 04/19/23 15:07 Tobacco use type Cigarette 04/19/23 14:55 PHQ-9: PHQ-9 Score PHQ-9: Total score 0 04/19/23 15:46 Depression Screening Interpretation: Negative Thrive Assessment: Date of Thrive Assessment Date Thrive assessed 03/27/23 04/19/23 14:55 Const Other: -THIN AND WEAK APPEARING SITTING COMFORTABLY IN WHEELCHAIR General: no acute distress, alert and awake Nutritional Appearance: well nourished Orientation/consciousness: oriented to person, oriented to place and oriented to time HENMT Ears: TM's normal bilaterally General nose exam: Normal nasal mucous membranes and turbinates present Eyes Conjunctivae: conjunctivae normal Sclerae: sclerae normal Pupils: Equal, round and reactive pupils present Neck Neck: Yes no lymphadenopathy and Yes no JVD Thyroid: Thyroid normal Carotids: no bruits Resp Effort & Inspection: normal respiratory effort and not tachypneic Auscultation: no crackles, no rales, no rhonchi and no wheezes Cardio Rate: regular rate Rhythm: regular rhythm Heart sounds: no murmurs and normal S1 and S2 GI Palpation (GI): Soft to palpation, nontender, no hepatomegaly and no splenomegaly Auscultation: normal bowel sounds Skin General skin exam: no rashes or lesions noted and dry skin Neuro General: oriented to person, oriented to place and oriented to time Cranial nerves: Yes Equal, round and reactive pupils present Speech: No Abnormal speech present Gait exam (Neuro): Normal gait present Motor exam (neuro): no tremor noted Extrem Right upper extremity: full ROM Left upper extremity: full ROM Right lower extremity: full ROM; no edema Left lower extremity: full ROM; no edema Psych Mental Status: mental status grossly normal Speech and movement: Normal speech and movement present Affect: normal affect Attitude: cooperative Thought process: Normal thought process present Assessment and Plan Assessment & Plan (1) Non-small cell cancer of left lung: Code(s): C34.92 - Malignant neoplasm of unspecified part of left bronchus or lung Plan: Has non small-cell lung cancer, will is seeing Oncology and will be having staging workup in near future. Reviewed MOLST form today in office and patient a DNR (2) Malnutrition: Code(s): E46 - Unspecified protein-calorie malnutrition Qualifiers: Malnutrition type: protein-calorie malnutrition Protein-calorie malnutrition severity: severe Qualified Code(s): E43 - Unspecified severe protein-calorie malnutrition Plan: Patient appears malnutrition today in office. Somewhat dehydrated with hypotension and mild tachycardia. Has been having some difficulty with swallowing and will be checked with a barium swallow. Will try to supply with Ensure high-protein shakes to help increase his caloric intake (3) Adult failure to thrive: Code(s): R62.7 - Adult failure to thrive (4) Lower extremity weakness: Code(s): R29.898 - Other symptoms and signs involving the musculoskeletal system Qualifiers: Laterality: bilateral Qualified Code(s): R29.898 - Other symptoms and signs involving the musculoskeletal system Plan: Having lower extremity weakness would benefit from a walker to reduce fall risk. (5) Insomnia: Code(s): G47.00 - Insomnia, unspecified Qualifiers: Insomnia type: unspecified Qualified Code(s): G47.00 - Insomnia, unspecified Plan: Has been having a lot of trouble sleeping thus will trial hydroxyzine 10-20 mg before bed Orders: Orders Complete Blood Count no Diff 04/19/23 E43 - Unspecified severe protein-calorie malnutrition Basic Metabolic Panel 04/19/23 E43 - Unspecified severe protein-calorie malnutrition Ferritin 04/19/23 E43 - Unspecified severe protein-calorie malnutrition Albumin Level 04/19/23 E43 - Unspecified severe protein-calorie malnutrition Prealbumin 04/19/23 E43 - Unspecified severe protein-calorie malnutrition Prostate Specific Antigen Scr 04/19/23 E43 - Unspecified severe protein-calorie malnutrition, Z12.5 - Encounter for screening for malignant neoplasm of prostate Liver Panel 04/19/23 C34.90 - Malignant neoplasm of unspecified part of unspecified bronchus or lung Medications: New food supplemt, lactose-reduced (Ensure Active High Protein oral liquid) 1 ea PO BID 30 days 60 multiple units 3RF E43 - Unspecified severe protein-calorie malnutrition, R29.898 - Other symptoms and signs involving the musculoskeletal system walker (Ultra-Light Rollator misc) As directed 1 ea 0RF C34.92 - Malignant neoplasm of unspecified part of left bronchus or lung, E46 - Unspecified protein-calorie malnutrition, R29.898 - Other symptoms and signs involving the musculoskeletal system hydroxyzine HCl Take 1-2 tablets before bed 20 mg (2 x 10 mg) PO BEDTIME 30 days 60 tabs 1RF G47.00 - Insomnia, unspecified food supplemt, lactose-reduced (Ensure Active High Protein oral liquid) 1 ea PO BID 30 days 60 multiple units 3RF C34.92 - Malignant neoplasm of unspecified part of left bronchus or lung, E46 - Unspecified protein-calorie malnutrition, R29.898 - Other symptoms and signs involving the musculoskeletal system Coding Level of Care Code New Pt Level 4 (75559) Diagnoses Non-small cell cancer of left lung C34.92 Malnutrition E43 Malnutrition type: protein-calorie malnutrition Protein-calorie malnutrition severity: severe Adult failure to thrive R62.7 Lower extremity weakness R29.898 Laterality: bilateral Insomnia G47.00 Insomnia type: unspecified
== END 2023-04-19 16:24 | disposition home or self-care (01) ==
PROVIDERS: Visit Provider Physician Assistant
DX: C34.92 Malignant neoplasm of unspecified part of left bronchus or lung (principal); E43 Unspecified severe protein-calorie malnutrition; R62.7 Adult failure to thrive; R29.898 Other symptoms and signs involving the musculoskeletal system; G47.00 Insomnia, unspecified
CPT/HCPCS: 99204

== ENCOUNTER 2023-04-19 16:37 | Outpatient (REF) | payer OTHER, SELFPAY ==
[2023-04-19 17:25] LABS: Hemoglobin 11.6 g/dl (14.0-18.0); Mean Corpuscular HGB Conc 32.2 g/dl (31.0-36.0); Platelet Count 239 X10*3/uL (160-400); White Blood Count 9.8 X10*3/uL (4.8-10.8)
[2023-04-19 23:27] LABS: Alanine Aminotransferase 22 U/L (0-40); Albumin Level 2.5 g/dL (3.5-5.0); Alkaline Phosphatase 61 U/L (39-117); Anion Gap 17 (12-20); Aspartate Amino Transferase 49 U/L (5-37); Bilirubin Direct 0.5 mg/dL (0.0-0.5); Blood Urea Nitrogen 11 mg/dL (9-16); Calcium 13.6 mg/dL (8.4-10.2); Carbon Dioxide 20 mmol/L (22-29); Chloride 98 mmol/L (96-108); Estimated Glomerular Filt Rate > 60; Ferritin 2445 ng/mL (20-250); Glucose Random 95 mg/dL (60-115); Potassium 4.1 mmol/L (3.3-5.1); Sodium 131 mmol/L (135-145); Total Protein 9.5 g/dL (6.5-8.0)
== END 2023-04-19 16:38 | disposition home or self-care (01) ==
LOC: HO.LAB 16:37
PROVIDERS: PCP Physician Assistant; Visit Provider Physician Assistant
DX: Z12.5 Encounter for screening for malignant neoplasm of prostate (principal); C34.90 Malignant neoplasm of unspecified part of unspecified bronchus or lung; E43 Unspecified severe protein-calorie malnutrition
CPT/HCPCS: 36415; 80048; 80076; 82728; 84134; 84153; 85027